=== PATIENT | male | born 1965 | race Caucasian/White ===

== ENCOUNTER → 2024-09-13 | Outpatient (CLI) | payer OTHER ==
[~2024-09-13] MED LIST: ALBU5SOL19 IH; BENZ-226 PO; BUPR-74 PO; DICL75TA5 PO; GABA-529 PO; HC2530O TP; LISI40TA9 PO; MONT-39 PO; SERT-440 PO
[2024-09-13 12:32] LABS: ALBUMIN 3.5 g/dL (3.5-5.0); BILIRUBIN,TOTAL 0.4 mg/dL (0.2-1.0); CREATININE 0.9 mg/dL (0.5-1.3); POTASSIUM 4.4 mmol/L (3.5-5.1); TOTAL PROTEIN, SERUM 6.9 g/dL (6.0-8.3)
== END | disposition home or self-care (01) ==
LOC: LAB 11:14
PROVIDERS: ATTEND Internal Medicine Cardiovascular Disease
DX: I25.118 Atherosclerotic heart disease of native coronary artery with other forms of angina pectoris (principal); E78.5 Hyperlipidemia, unspecified
CPT/HCPCS: 36415; 80053; 80061

== ENCOUNTER 2024-09-21 15:21 | Inpatient (IN) | payer OTHER ==
[~2024-09-21] VITALS: Ht 177.8 cm; Wt 149.9 kg
--- NOTE | 2024-09-21 15:30 | ERN ---
ED Note History of Present Illness Stated Complaint: CHEST PAIN Chief Complaint: Chest Pain Time Seen by MD: 15:23 Dictation: PATIENT IS A 58-YEAR-OLD MALE HERE WITH MULTIPLE COMPLAINTS TO INCLUDE DIZZINESS AND VERTIGO, WORSE WHEN HE TURNS HIS HEAD FOR THE LAST WEEK. ALSO STATES HE HAS HAD INTERMITTENT CHEST PAIN THAT DOES NOT RADIATE, NO NAUSEA VOMITING NO DIARRHEA NO ARM PAIN NO BACK PAIN. STATES HE RECENTLY HAD A CARDIAC STENT DONE AT [facility] LAST MONTH BY DR. GEE. STATES HE IS NOT HAVING ANY CHEST PAIN AT THIS TIME BUT JUST DOES NOT FEEL RIGHT AND WANTED TO BE CHECKED OUT. NIH IS 0 GAIT IS STEADY TO TRIAGE. Allergies: Coded Allergies: No Known Allergies (Unverified Allergy, Unknown, 08/22/24) Home Meds Reported Medications Albuterol Sulfate (Albuterol Sulfate) 5 Mg/Ml Solution, 7 MG IH Q6HPRN, ML 08/22/24 Hydrocortisone (Hydrocortisone 2.5% Oint) 2.5 % Oint, 1 APPL TP BID for 5 Days, #30 GM 0 Refills APPLY TO LEFT HAND NEAR LEFT PINKY, apply to affected area(s) 08/22/24 Sertraline HCl (Sertraline HCl) 100 Mg Tablet, 1 TAB PO DAILY for 30 Days, #30 TAB 0 Refills 08/22/24 Benzonatate (Benzonatate) 100 Mg Capsule, 100 MG PO TID, CAP 08/22/24 Bupropion HCl (Bupropion HCl Sr) 150 Mg Tablet.er, 1 TAB PO BID for 30 Days, #60 TAB 0 Refills 08/22/24 Diclofenac Sodium (Diclofenac Sodium) 75 Mg Tablet.dr, 1 MG PO BID 08/22/24 Gabapentin (Gabapentin) 100 Mg Capsule, 300 MG PO BID, CAP 08/22/24 Montelukast Sodium (Montelukast Sodium) 10 Mg Tablet, 1 TAB PO DAILY for 30 Days, #30 TAB 0 Refills 08/22/24 Lisinopril (Lisinopril) 40 Mg Tablet, 1 TAB PO DAILY for 30 Days, #30 TAB 0 Refills 08/22/24 Past Medical History Past Medical History: Anxiety, COPD, High Cholesterol, Hypertension, SC Surgical History: None Surgical History Other: CARDIAC STENTS X1 Family History: Negative Social History: Smokers, ETOH RN Note Reviewed/Agreed w/PFSH: Yes Review of System Dictation CONSTITUTIONAL: NEGATIVE EXCEPT FOR HPI HEAD/FACE: NEGATIVE EXCEPT FOR HPI EENT: NEGATIVE EXCEPT FOR HPI RESPIRATORY: NEGATIVE EXCEPT FOR HPI INTERMITTENT CHEST PAIN GASTROINTESTINAL/ABDOMINAL: NEGATIVE EXCEPT FOR HPI GENITOURINARY: NEGATIVE EXCEPT FOR HPI MUSCULOSKELETAL: NEGATIVE EXCEPT FOR HPI INTEGUMENTARY: NEGATIVE EXCEPT FOR HPI NEUROLOGICAL/PSYCH: NEGATIVE EXCEPT FOR HPI DIZZINESS/VERTIGO HEMATOLOGIC/LYMPHATIC: NEGATIVE EXCEPT FOR HPI ALL SYSTEMS NEGATIVE, EXCEPT NOTED ABOVE. 13 POINT REVIEW OF SYSTEMS ASSESSED AND ALL NEGATIVE EXCEPT FOR ABOVE. Initial Vital Sign VS Vital Signs Date Time Temp Pulse Resp B/P (MAP) Pulse Ox O2 Delivery O2 Flow Rate FiO2 09/21/24 15:23 99.5 85 20 115/76 98 Room Air 09/21/24 17:22 0 21 Physical Exam Dictation VITAL SIGNS REVIEWED GENERAL APPEARANCE: ALERT, ORIENTED X 3, NO ACUTE DISTRESS, WELL DEVELOPED, NOURISHED. HEAD AND FACE: NON-TRAUMATIC. EYES: PERRL, PINK CONJUNCTIVAS, EYELID NO TRAUMA, ANTERIOR CHAMBER WITH ARCUS SENILIS. BILATERAL HORIZONTAL NYSTAGMUS EARS: PINNAS INTACT AND NO SIGNS OF TRAUMA OR ERYTHEMA EAR CANALS CLEAR AND NO DISCHARGE TM NO ERYTHEMA NOSE: NO DISCHARGE, NO BLEEDING. OROPHARYNX: MOUTH NORMAL, TONGUE PINK, PHARYNX CLEAR,NO ERYTHEMA, TONSILS NO EXUDATES, NO ABSCESSES NOTED, MUCOUS MEMBRANE MOIST NECK: SUPPLE, NON-TENDER, NO THYROMEGALY, NO MASSES, NO JVD, NO BRUITS BREAST:DEFERRED CHEST:NO TENDERNESS, NO CREPITUS, NO PARADOXICAL MOVEMENT, NO RETRACTIONS LUNGS:CLEAR, WELL-VENTILATED, SYMMETRIC, NO RALES, NO WHEEZING, NO RHONCHI, NO STRIDOR, GOOD BREATH SOUNDS BILATERALLY HEART: REGULAR RATE, REGULAR RHYTHM, NO MURMUR, NO GALLOPS VASCULAR: NO PERIPHERAL EDEMA, ABDOMEN: SOFT, POSITIVE BOWEL SOUNDS, NONDISTENDED, NO GUARDING, NONTENDER, NO REBOUND, NO MASSES NO HEPATOMEGALY, NO SPLENOMEGALY, NO BUTLER'S SIGN, NO HERNIAS. RECTAL: DEFERRED GENITAL: DEFERRED NEUROLOGICAL: NORMAL SPEECH, MOTOR FUNCTION INTACT, SENSORY FUNCTION INTACT NIH IS 0 MUSCULOSKELETAL: NECK NONTENDER, FULL RANGE OF MOTION, BACK NONTENDER, FULL RANGE OF MOTION, EXTREMITIES: NONTENDER, FULL RANGE OF MOTION SKIN: COLOR PINK, DRY, NO TURGOR, NO RASH, NO LACERATIONS, NO ABRASIONS, NO CONTUSIONS. LYMPHATIC: DEFERRED Results (Laboratory/Radiology) Laboratory/Radiology Laboratory Tests Test 09/21/24 15:49 White Blood Count 11.0 K/uL (4.8-10.8) H Red Blood Count 4.40 MIL/uL (4.50-6.20) L Hemoglobin 13.6 g/dL (14.0-18.0) L Hematocrit 41.3 % (42-54) L Mean Corpuscular Volume 93.9 fL (79-99) Mean Corpuscular Hemoglobin 30.9 pg (27.0-33.0) Mean Corpuscular Hemoglobin Concent 32.9 g/dL (32.0-36.0) Red Cell Distribution Width 13.0 % (11.0-15.5) Platelet Count 203 K/uL (130-400) Mean Platelet Volume 9.2 fL (7.5-10.5) Immature Granulocyte % (Auto) 0.5 % (0-1) Neutrophils (%) (Auto) 68.2 % (40.0-77.0) Lymphocytes (%) (Auto) 17.9 % (21.0-51.0) L Monocytes (%) (Auto) 10.6 % (3.0-13.0) Eosinophils (%) (Auto) 2.5 % (0.0-8.0) Basophils (%) (Auto) 0.3 % (0.0-5.0) Neutrophils # (Auto) 7.5 K/uL (1.8-7.7) Lymphocytes # (Auto) 2.0 K/uL (1.0-4.8) Monocytes # (Auto) 1.2 K/uL (0.1-1.0) H Eosinophils # (Auto) 0.27 K/uL (0.00-0.70) Basophils # (Auto) 0.03 K/uL (0.00-0.20) Absolute Immature Granulocyte (auto 0.05 K/uL (0-1) Nucleated Red Blood Cells 0.0 % (0.0-0.19) Sodium Level 136 mmol/L (136-145) Potassium Level 3.9 mmol/L (3.5-5.1) Chloride Level 101 mmol/L (101-111) Carbon Dioxide Level 28 mmol/L (21-32) Blood Urea Nitrogen 15 mg/dL (7-18) Creatinine 1.0 mg/dL (0.5-1.3) Glomerular Filtration Rate Calc 87 mL/min (>90) Random Glucose 119 mg/dL (70-105) H Total Calcium 9.8 mg/dL (8.5-10.1) Troponin I High Sensitivity 8 ng/L (4-75) xam Type: CHEST 1VW Clinical Information: SHORTNESS A BREATH/CHEST PAIN Comparison: None Findings: Old healed with deformity right midclavicular fracture. The lungs are clear of infiltrates. The heart is enlarged. Bony and soft tissue structures of the chest wall are unremarkable. IMPRESSION: Cardiomegaly. Clear lungs. Labs Reviewed?: Yes EKG Comment: EKG IS SINUS RHYTHM/HEART RATE 81/AR INTERVAL 202 MILLISECOND /NO SPECIFIC CHANGES ED Course ED Course Orders Procedure Category Date Status Time Methylprednisolone PHA 09/21/24 Complete Succ 125mg (Solu-Medr 15:30 Meclizine Hcl 25 Mg PHA 09/21/24 Complete (Antivert 25 Mg) 15:30 Covid19 (Sars Antigen LAB 09/21/24 Logged Rapid) 15:27 Cbc With Differential LAB 09/21/24 Complete 15:27 Troponin I High LAB 09/21/24 Complete Sensitivity 15:27 12 Lead Ekg Tracing- EKG 09/21/24 Logged Technical 15:27 0.9%Nacl 1000ml (Ns PHA 09/21/24 Complete 1000ml) 15:30 Chest 1vw RAD 09/21/24 Resulted 15:27 Basic Metabolic Panel LAB 09/21/24 Complete 15:27 Albuterol 0.083% PHA 09/21/24 Complete 2.5mg/3ml (Proventil 17:30 Edm Admit Bridge Order ADM 09/21/24 Transmitted 17:19 Vital Signs(Adult CPOE 09/21/24 Transmitted Hospitalist) 17:58 Nurse To Enter Home CPOE 09/21/24 Transmitted Medication 17:58 Admit Orders ADM 09/21/24 Transmitted 17:58 Telemetry Monitoring CPOE 09/21/24 Transmitted 17:58 Heart Healthy Diet DIET 09/22/24 Transmitted Breakfast Morphine 2mg Syg PHA 09/21/24 Transmitted (Morphine 2mg Syg) 18:00 Pantoprazole 40mg Inj PHA 09/21/24 Transmitted (Protonix 40mg Inj 19:00 *Nursing CPOE 09/21/24 Transmitted Communication: 17:58 Troponin I High LAB 09/21/24 Transmitted Sensitivity 18:00 Troponin I High LAB 09/22/24 Verified Sensitivity 00:00 Echo 2-D Complete ECHO 09/21/24 Transmitted 17:58 Psychiatry Consult CONPHYSVC 09/21/24 Transmitted 17:58 Aspirin 81mg Chew Tab PHA 09/22/24 Transmitted (Aspirin 81mg Chew 09:00 Clopidogrel 75mg Tab PHA 09/22/24 Transmitted (Plavix 75mg) 09:00 Thyroid Stimulating LAB 09/21/24 Transmitted Hormone 17:58 Hemoglobin A1c LAB 09/21/24 Transmitted 17:58 Procalcitonin LAB 09/21/24 Transmitted 17:58 Crp Quantitative LAB 09/21/24 Transmitted 17:58 Urinalysis Profile LAB 09/21/24 Transmitted 17:58 Lipase LAB 09/21/24 Transmitted 17:58 Ct Abdomen/Pelvis W/O CT 09/21/24 Transmitted Contrast 17:58 Ct Head/Brain W/O CT 09/21/24 Transmitted Contrast 17:58 Acetaminophen 500mg PHA 09/21/24 Transmitted Tab (Tylenol 500mg T 18:00 0.9%Nacl 1000ml (Ns PHA 09/21/24 Transmitted 1000ml) 18:00 Cardiology Consult CONPHYSVC 09/21/24 Transmitted 17:58 Pt Eval And Treat PT 09/21/24 Transmitted 17:58 Ipratropium/Albuterol PHA 09/21/24 Transmitted Neb (Duoneb) 21:00 Current Medications Medications (Trade) Dose Ordered Sig/Iris Route PRN Reason Start Time Stop Time Status Last Admin Dose Admin Albuterol Sulfate (Proventil 0.083% 2.5mg/3ml) 2.5 mg ONCE ONCE IH 09/21/24 17:30 09/21/24 17:31 DC 09/21/24 17:33 Meclizine HCl (ANTIvert 25 mg) 50 mg ONCE ONCE PO 09/21/24 15:30 09/21/24 15:31 DC 09/21/24 17:18 Methylprednisolone Sodium Succinate (Solu-medROL 125MG) 125 mg ONCE ONCE IVP 09/21/24 15:30 09/21/24 15:31 DC 09/21/24 17:18 Sodium Chloride 1,000 ml @ 0 mls/hr ONCE ONCE IV 09/21/24 15:30 09/21/24 15:31 DC 09/21/24 17:19 Vital Signs Date Time Temp Pulse Resp B/P (MAP) Pulse Ox O2 Delivery O2 Flow Rate FiO2 09/21/24 17:33 74 18 09/21/24 17:22 72 18 122/68 98 Room Air* 0 21 09/21/24 15:23 99.5 85 20 115/76 98 Room Air 1712/DR KRUSE PRESENTED THE CASE TO , REVIEWED EKG LABS AND CHEST X- RAY PATIENT WAS ADMITTED. HEART Score Response (Comments) Value EKG: Repolarization changes 1 Age: > 65yrs (+2) 2 Risk Factors: 3+ risk factors (+2) 2 Initial Troponin: Normal limit (0) 0 Total 5 Medical Decision Making MDM MDM: DIFFERENTIAL DIAGNOSIS: ACS/AMI/ELECTROLYTE IMBALANCE/DEHYDRATION/PNEUMONIA/ RATIONALE: TESTS CONSIDERED AND ORDERED SECONDARY TO SHARED DECISION MAKING INCLUDE: LABS, ECG AND RADIOLOGY PREVIOUS OUTSIDE RECORDS REVIEWED: OLD ER VISITS. BRONCHITIS/VERTIGO. REVIEWED RISK OF COMPLICATION AND/OR MORBIDITY OR MORTALITY OF PATIENT MANAGEMENT: MODERATE MEDICATIONS-PER MEDICATION RECONCILIATION NEED FOR HOSPITALIZATION: PATIENT DOES MEET CRITERIA FOR HOSPITALIZATION. PATIENT WILL NEED SERIAL EKG AND ENZYMES. NEED FOR EMERGENCY MAJOR/MINOR SURGERY: NO THERE ARE NO SOCIAL CONCERNS WITH THIS PATIENT. PRESCRIPTION DRUG MANAGEMENT PRESCRIPTIONS WILL INCLUDE SYMPTOMATIC CARE PATIENT'S PRIOR EXTERNAL MEDICAL RECORDS FROM OTHER ER VISITS WERE REVIEWED BY ME INDICATED. PRIOR TESTING AND RESULTS FROM PREVIOUS VISITS WERE REVIEWED. PRIOR TESTS WERE TAKEN INTO ACCOUNT WITH MEDICAL DECISION MAKING AND RESOURCE UTILIZATION, INDEPENDENT HISTORIAN/HISTORIANS WERE USED TO OBTAIN COMPLETE MEDICAL HISTORY. I INDEPENDENTLY INTERPRETED THE TEST THAT WERE PERFORMED, RESULTS WERE REVIEWED BY ME AND CONSIDERED FINDINGS ON RADIOLOGY IF ORDERED. MEDICAL MANAGEMENT AND EXAMINATION INTERPRETATION DISCUSSIONS WERE HAD BY ME WITH OTHER QUALIFIED HEALTHCARE PROFESSIONALS INDICATED FOR THE PATIENT'S CARE. DX & DISP Disposition: Inpatient Decision to Admit Time: 17:17 Departure Impression: Primary Impression: Chest pain with high risk of acute coronary syndrome Additional Impressions: Viral URI with cough, Dizziness Condition: Stable Referrals: GEOVANY VELARDE (PCP) Time of Disposition: 17:17 I have reviewed the case, and I agree with, Diagnosis and Plan I performed a substantive portion of the visit. I have reviewed and personally made and approve the management plan that is documented in the notes by myself with JULIEN/resident. I acknowledged full responsibility for the patient's manage ment plan. MAHIN JEFFERS NP Sep 21, 2024 15:30 CAROLYN KRUSE DO Sep 21, 2024 18:07
--- NOTE | 2024-09-21 15:48 | HMCIMG ---
Exam Type: CHEST 1VW Clinical Information: SHORTNESS A BREATH/CHEST PAIN Comparison: None Findings: Old healed with deformity right midclavicular fracture. The lungs are clear of infiltrates. The heart is enlarged. Bony and soft tissue structures of the chest wall are unremarkable. IMPRESSION: Cardiomegaly. Clear lungs.
[2024-09-21 15:56] LABS: BASOPHILS # (AUTO) 0.03 K/uL (0.00-0.20); BASOPHILS % (AUTO) 0.3 % (0.0-5.0); EOSINOPHILS # (AUTO) 0.27 K/uL (0.00-0.70); EOSINOPHILS % (AUTO) 2.5 % (0.0-8.0); HEMATOCRIT 41.3 % (42-54); IMMATURE GRANULOCYTE ABSOLUTE 0.05 K/uL (0-1); LYMPHOCYTES % (AUTO) 17.9 % (21.0-51.0); MEAN CORPUSCULAR HEMOGLOBIN 30.9 pg (27.0-33.0); MEAN CORPUSCULAR HGB CONC 32.9 g/dL (32.0-36.0); MEAN CORPUSCULAR VOLUME 93.9 fL (79-99); MONOCYTES # (AUTO) 1.2 K/uL (0.1-1.0); MONOCYTES % (AUTO) 10.6 % (3.0-13.0); NEUTROPHILS # (AUTO) 7.5 K/uL (1.8-7.7); NEUTROPHILS % (AUTO) 68.2 % (40.0-77.0); PLATELET COUNT (AUTO) 203 K/uL (130-400)
[2024-09-21 16:21] LABS: POTASSIUM 3.9 mmol/L (3.5-5.1)
[2024-09-21] MEDS: mecliZINE HCL 25 MG TABLET PO ONE (17:18)
[2024-09-21] MEDS: Solu-medROL 125MG VIAL IVP ONE (17:18)
[2024-09-21] MEDS: 0.9%NACL 1000ML 1,000 ML IV ONE ×2 (17:19→18:18)
[2024-09-21 17:33] VITALS: PULSE 74; RESP 18
[2024-09-21] MEDS: ALBUTEROL 0.083% 2.5 MG/3 ML INH IH ONE (17:33)
[2024-09-21] MEDS ORDERED: morPHINE 2 MG SYG IVP PRN (18:00)
--- NOTE | 2024-09-21 18:38 | HP ---
[facility] HISTORY AND PHYSICAL Date of Service: Sep 21, 2024 Time of Service: 18:37 HISTORY OF PRESENT ILLNESS: Date of service: 09/21/2024 58-year-old male with past medical history of hypertension, history of CAD with recent inferior LA status post stent placement, history of depression who presented to the hospital secondary to generalized fatigue, chest pain. Patient states for the past one week he has noted on and off episodes of chest pain. He points towards his midsternal/epigastric area and describes the pain as sharp in nature. He has noted pain radiating to his right shoulder and jaw. He has also noticed generalized fatigue with associated paresthesias in the lower extremities. He has been able to ambulate at home but denies any falls, syncopal episode. Denied any headaches, neck pain. Additionally he states he is having issues with memory where his has noted that patient has word- finding difficulties at home. Patient denied any changes in his speech, denied any abdominal pain, nausea, vomiting. Denied any changes in his urination but states he has noted episodes of diarrhea at home. Patient quit smoking around a month ago after he had STEMI and currently is on bupropion. He denies any suicidal thoughts or homicidal ideation. He feels depressed and endorses having mood swings at home. He currently takes Zoloft at home which he has been taking for few few years. He has not seen a psychiatrist before. He has been a mainly following with his primary care provider. Denied any problems with movement of the upper and lower extremity. He had followed up with Cardiology and was scheduled for intervention for his residual mid LAD disease in next week. Labs in the ED were notable for white count of 11.0, hemoglobin was 13.6, platelet count was 203 K, sodium was 136, potassium was 3.9, creatinine was 1.0, glucose was one one, troponin was negative x1 REVIEW OF SYSTEMS CONSTITUTIONAL: Denies fevers, chills, or night sweats. No unintentional weight loss reported. Positive for generalized fatigue NEUROLOGICAL: Denies headache, amaurosis fugax, motor weakness, sensory deficit, vertigo/spinning sensation, gait abnormalities, or tremors. Positive for paresthesias in the bilateral lower extremity ENT: No hearing loss, otalgia, otorrhea, rhinitis, rhinorrhea, hoarseness, or sore throat. CARDIOVASCULAR: Denies any exertional angina, dyspnea on exertion, orthopnea, paroxysmal nocturnal dyspnea, palpitations, life-threatening arrhythmias, claudication. Positive for chest pain PULMONARY: Positive for cough, sputum production. Denied any hemoptysis GASTROINTESTINAL: Denies any type of dysphagia to either liquids or solids. Denies nausea, vomiting, pyrosis, early satiety, abdominal pain, constipation, or changes in stool consistency or caliber. Denies coffee-ground emesis, hematemesis, hematochezia, or melanotic stools. Positive for diarrhea GENITOURINARY: Denies frequency, urgency, nocturia, hematuria or incontinence (Storage/Irritative symptoms.) Low urinary stream, straining to void, urinary intermittency or hesitancy, splitting of the voiding stream, terminal dribbling. ENDOCRINOLOGIC: Denies polyuria, polydipsia, polyphagia or heat/cold intolerances. HEMATOLOGIC: Denies thrombophilia/previous clots, or coagulopathy/bleeding disorders. ONCOLOGIC: Denies personal history of malignancy. DERMATOLOGIC: Denies rashes or pruritus. PSYCHIATRIC: Denies any suicidal or homicidal ideation. Denies hallucinations. PAST MEDICAL HISTORY: Hypertension, history of inferior LA September 02, 2024, hypertension, hyperlipidemia PAST SURGICAL HISTORY: History of cardiac stent placement in September 02, 2019 PAST SOCIAL HISTORY: Patient quit smoking in 2024, denied any alcohol use. Denied any drug use FAMILY HISTORY: Denied any pertinent family history Coded Allergies: No Known Allergies (Unverified Allergy, Unknown, 08/22/24) PHYSICAL EXAM GENERAL APPEARANCE: The patient is awake, alert, and oriented, in no acute cardiopulmonary distress. NEUROLOGICAL: Cranial nerves II-XII grossly intact. Motor is 5/5 in bilateral upper and lower extremities proximal to distal. No sensory deficits. HEENT: Face is symmetric. Pupils are equal and reactive. Extraocular movements are intact. NECK: Supple. No JVD. No thyromegaly. No submental, submandibular, pre- /postauricular, occipital or supraclavicular lymphadenopathy. CHEST: Normal chest expansion. No Telemetry. LUNGS: Absence of any rales, rhonchi or any wheezing. CARDIOVASCULAR: Regular. S1 and S2 normal. No appreciable rubs, murmurs or gallops. ABDOMEN: Soft, tenderness to palpation in the epigastric area, and nondistended. There is no rebound, voluntary guarding, or rigidity. : Deferred. No Estrada. EXTREMITIES: Non-edematous and not cyanotic. No clubbing. Good capillary refill. SKIN: No skin breakdown. Vital Sign (Last 24 Hours) 09/21/24 18:30 Temp 99.0 Pulse 71 Resp 18 B/P (MAP) 128/72 Pulse Ox 98 O2 Delivery Room Air* O2 Flow Rate 0 FiO2 21 LABS: Laboratory: Test 09/21/24 15:49 Range/Units White Blood Count 11.0 H 4.8-10.8 K/uL Red Blood Count 4.40 L 4.50-6.20 MIL/uL Hemoglobin 13.6 L 14.0-18.0 g/dL Hematocrit 41.3 L 42-54 % Mean Corpuscular Volume 93.9 79-99 fL Mean Corpuscular Hemoglobin 30.9 27.0-33.0 pg Mean Corpuscular Hemoglobin Concent 32.9 32.0-36.0 g/dL Red Cell Distribution Width 13.0 11.0-15.5 % Platelet Count 203 130-400 K/uL Mean Platelet Volume 9.2 7.5-10.5 fL Immature Granulocyte % (Auto) 0.5 0-1 % Neutrophils (%) (Auto) 68.2 40.0-77.0 % Lymphocytes (%) (Auto) 17.9 L 21.0-51.0 % Monocytes (%) (Auto) 10.6 3.0-13.0 % Eosinophils (%) (Auto) 2.5 0.0-8.0 % Basophils (%) (Auto) 0.3 0.0-5.0 % Neutrophils # (Auto) 7.5 1.8-7.7 K/uL Lymphocytes # (Auto) 2.0 1.0-4.8 K/uL Monocytes # (Auto) 1.2 H 0.1-1.0 K/uL Eosinophils # (Auto) 0.27 0.00-0.70 K/uL Basophils # (Auto) 0.03 0.00-0.20 K/uL Absolute Immature Granulocyte (auto 0.05 0-1 K/uL Nucleated Red Blood Cells 0.0 0.0-0.19 % Sodium Level 136 136-145 mmol/L Potassium Level 3.9 3.5-5.1 mmol/L Chloride Level 101 101-111 mmol/L Carbon Dioxide Level 28 21-32 mmol/L Blood Urea Nitrogen 15 7-18 mg/dL Creatinine 1.0 0.5-1.3 mg/dL Glomerular Filtration Rate Calc 87 >90 mL/min Random Glucose 119 H 70-105 mg/dL Total Calcium 9.8 8.5-10.1 mg/dL Troponin I High Sensitivity 8 4-75 ng/L Current Medications Medications (Trade) Dose Ordered Sig/Iris Route PRN Reason Start Time Stop Time Status Last Admin Dose Admin Acetaminophen (TYLenol 500MG TAB) 500 mg Q6H PRN PO MILD PAIN (1-3) 09/21/24 18:00 10/21/24 17:59 Albuterol (DUOneb) 1 UDVIAL Q6H PRN IH SHORTNESS OF BREATH 09/21/24 21:00 10/21/24 20:59 Aspirin (Aspirin 81mg Chew Tab) 81 mg DAILY PO 09/22/24 09:00 10/22/24 08:59 Clopidogrel Bisulfate (plaVIX 75MG) 75 mg DAILY PO 09/22/24 09:00 10/22/24 08:59 Hydralazine HCl (APRESOLine 20MG INJ) 10 mg Q6H PRN IV ADMINISTER FOR SBP > 180 09/21/24 19:00 10/21/24 18:59 UNV Lisinopril (Prinivil 20mg) 20 mg DAILY PO 09/22/24 09:00 10/22/24 08:59 Morphine Sulfate (morPHINE 2MG SYG) 2 mg Q6H PRN IVP SEVERE PAIN (7-10) 09/21/24 18:00 09/28/24 17:59 Pantoprazole Sodium (PROTonix 40MG INJ) 40 mg DAILY IVP 09/21/24 19:00 10/21/24 18:59 DIAGNOSTICS / RADIOLOGY: [ ] ASSESSMENT: Chest pain ACS rule POA CAD with history of recent inferior LA status post angioplasty and stent placement in the left posterior lateral branch with residual stenosis involving the mid LAD 75% Hypertension Hyperlipidemia Generalized fatigue with bilateral paresthesias the lower extremity Former smoker Depression Abdominal pain with epigastric tenderness differential pancreatitis versus PUD PLAN: - patient to be admitted to medical-surgical unit with telemetry -in reference to chest pain. We will trend troponins q.6 hours to rule out ACS. We will also obtain echocardiogram. Patient will be restarted on aspirin and Plavix. Secondary to recent LA and residual mid LAD stenosis. We will request consultation with Cardiology -obtain a CT head. We will consider MRI brain depending on clinical course. - in reference to abdominal pain. Obtain a CT abdomen pelvis. We will check lipase -check TSH, A1c procaine, CRP -we will request consultation with Psychiatry. Patient denies any suicidal thoughts or homicidal ideation -obtain home medications which will be reconciled once available -further orders per hospitalization Advanced Care Planning Which of the following were discussed: Hospice care: Yes __ No _x_ Therapeutic options: Yes __ No __ Advance directives: Yes __ No __ Other discussions: Pt is full code Discussed with who?: patient (Patient, family or surrogates) Voluntary nature of this service was explained to the patient? Yes _x_ No __ Amount of time spent: 25 minutes KHRIS Watson MD, MD Sep 21, 2024 18:38
[2024-09-21] MEDS ORDERED: hydrALAZine 20MG/ML VIAL IV PRN (19:00)
[2024-09-21 19:06] LABS: APPEARANCE,URINE CLEAR (CLEAR); BILIRUBIN,URINE NEGATIVE (NEGATIVE); COLOR,URINE COLORLESS (YELLOW); GLUCOSE, URINE (UA) NEGATIVE (NEGATIVE); KETONES,URINE NEGATIVE (NEGATIVE); LEUKOCYTE ESTERASE ,URINE NEGATIVE Leu/uL (NEGATIVE); NITRATE,URINE NEGATIVE (NEGATIVE); OCCULT BLOOD,URINE NEGATIVE (NEGATIVE); PH,URINE 5.5 (5.0-8.0); PROTEIN,URINE NEGATIVE (NEGATIVE); UROBILINOGEN,URINE 0.2 mg/dL (0.2-1.0)
[2024-09-21] MEDS: PANTOPrazole 40 MG/VIAL IVP SCH (19:09)
--- NOTE | 2024-09-21 19:10 | HMCIMG ---
CT HEAD WITHOUT CONTRAST INDICATION: Generalized weakness TECHNIQUE: Noncontrast axial helical CT images from the vertex through the skull base using 5 mm slice thickness without contrast material. CT was performed with one or more of the following dose reduction techniques: Automated exposure control, adjustment of the mA and/or kV according to patient size, or use of iterative reconstruction technique. COMPARISON: None FINDINGS: The cerebral and cerebellar hemispheres are age-appropriate in appearance. No evidence for abnormal extra-axial fluid collections or masses. The ventricles and sulci are normal in size and configuration. No evidence for intracranial parenchymal, epidural, or subdural hemorrhage, mass effect or midline shift. The acosta-white matter differentiation is well preserved. No secondary evidence to suggest acute ischemia. The brainstem and cerebellum appear normal. The visualized orbits appear unremarkable. The visible paranasal sinuses and mastoid air cells are clear. The calvarium appears normal. IMPRESSION: No acute intracranial process identified.
[2024-09-21 19:11] LABS: ADD UA MICROSCOPIC NO
[2024-09-21 19:16] LABS: THYROID STIMULATING HORMONE 1.62 uIU/mL (0.36-3.74)
--- NOTE | 2024-09-21 19:17 | HMCIMG ---
CT ABDOMEN WITHOUT CONTRAST. CT PELVIS WITHOUT CONTRAST. INDICATION: Left upper abdominal and epigastric abdominal pain TECHNIQUE: Routine transaxial imaging using 5 mm slice thickness through the abdomen and pelvis without the administration of IV contrast. Thin slice reconstructions are also provided. Coronal and sagittal reformatted images acquired for interpretation. CT was performed with one or more of the following dose reduction techniques: Automated exposure control, adjustment of the mA and/or kV according to patient size, or use of iterative reconstruction technique. COMPARISON: None FINDINGS: ON NONCONTRAST IMAGING: ABDOMEN: Heart size is normal. Visible lung bases are clear. No abnormal renal calcifications, hydronephrosis, perinephric inflammation, or proximal hydroureter detected. The liver is normal in size and smooth in contour without biliary duct dilation. The spleen is normal in size and attenuation. The gallbladder appears normal. The pancreas appears normal without pancreatic duct dilation. The adrenal glands appear normal. No significant abdominal, retrocrural or retroperitoneal adenopathy noted. No evidence for intra-abdominal free air or organized fluid collection. Mild calcific plaque is noted along the abdominal aortic and iliac vessel ingram without aneurysmal dilation. PELVIS: No abnormal calcifications within the urinary bladder or distal ureters. No evidence for free air or organized pelvic fluid collection. No significant pelvic adenopathy detected. Visualized small and large bowel loops appear unremarkable. Terminal ileum appears unremarkable. The appendix appears normal. Mild thoracolumbar spondylosis. Chronic bilateral L5 spondylolysis contributing to low-grade (4 mm) anterolisthesis of L5 upon S1. IMPRESSION: No evidence for any acute intra-abdominal or pelvic process.
[2024-09-21] MEDS ORDERED: PoTASSium chl 10% ELIXIR 20MEQ 20 MEQ/15 ML UDCUP PO PRN (19:30)
[2024-09-21] MEDS ORDERED: MAGNESIUM 2GM PREMIX 50ML 50 ML IV PRN (19:30)
[2024-09-21] MEDS ORDERED: PoTASSium chloRIDE 20MEQ ER 20 MEQ ERTAB PO PRN (19:30)
[2024-09-21] MEDS ORDERED: PoTASSium chloRIDE 20MEQ/100ML 100 ML IV PRN (19:30)
--- NOTE | 2024-09-21 21:44 | NUR ---
NEURO CONSULT FOR DR WEAVER DONE BY DR WEIR
[2024-09-21] MEDS ORDERED: ATOR40TA71 PO (21:57)
[2024-09-21] MEDS ORDERED: ASPI-1005 PO (21:58)
[2024-09-21] MEDS ORDERED: ISOS30TA92 PO (21:58)
[2024-09-21] MEDS ORDERED: LISI20TA24 PO (21:58)
[2024-09-21] MEDS ORDERED: CLOP75TA32 PO (21:59)
[2024-09-21] MEDS ORDERED: METO50TA18 PO (22:00)
[2024-09-22 00:08] VITALS: PULSE 77; RESP 18; O2SAT 97
[2024-09-22] MEDS: IpraTROPium/alBUTERol SULFATE 3 ML SOLUTION IH PRN (00:08)
--- NOTE | 2024-09-22 06:35 | EKG ---
[facility] Test Date: 2024-09-21 Test Time: 15:20:44 Pat Name: KRISTINA WISEMAN Department: EDHIP Room: ED [facility] Gender: M Technical Artist: [id number] : [id number] Requested By: MAHIN JEFFERS Order Number: [id number] Reading MD: Kristie Myers Measurements Intervals [place] Rate: 81 P: 72 CO: 202 QRS: -26 QRSD: 96 T: -27 QT: 364 QTc: 423 Interpretive Statements Sinus rhythm with first degree AV block Compared to ECG 08/23/2024 06:18:31 ST (T wave) deviation no longer present Prolonged QT interval no longer present Electronically Signed On 09-22-2024 10:21:24 CDT by Kristie Myers Please click the below link to view image of tracing.
[2024-09-22 07:20] VITALS: PULSE 82; RESP 18; O2SAT 97
[2024-09-22 07:21] VITALS: PULSE 82; RESP 18
[2024-09-22 07:29] LABS: BASOPHILS # (AUTO) 0.01 K/uL (0.00-0.20); BASOPHILS % (AUTO) 0.1 % (0.0-5.0); IMMATURE GRANULOCYTE ABSOLUTE 0.06 K/uL (0-1); LYMPHOCYTES # (AUTO) 1.3 K/uL (1.0-4.8); LYMPHOCYTES % (AUTO) 15.7 % (21.0-51.0); MEAN CORPUSCULAR HEMOGLOBIN 30.9 pg (27.0-33.0); MEAN CORPUSCULAR HGB CONC 33.5 g/dL (32.0-36.0); MEAN CORPUSCULAR VOLUME 92.4 fL (79-99); MONOCYTES # (AUTO) 0.2 K/uL (0.1-1.0); MONOCYTES % (AUTO) 2.2 % (3.0-13.0); NEUTROPHILS # (AUTO) 6.9 K/uL (1.8-7.7); NEUTROPHILS % (AUTO) 81.3 % (40.0-77.0); PLATELET COUNT (AUTO) 204 K/uL (130-400); RED BLOOD CELL COUNT(AUTO) 4.33 MIL/uL (4.50-6.20); RED CELL DISTRIBUTION WIDTH 13.2 % (11.0-15.5); WHITE BLOOD COUNT (AUTO) 8.5 K/uL (4.8-10.8)
[2024-09-22 07:34] LABS: CREATININE 0.8 mg/dL (0.5-1.3); POTASSIUM 4.2 mmol/L (3.5-5.1)
--- NOTE | 2024-09-22 08:09 | PN ---
[facility] PROGRESS NOTE Date of Service: Sep 22, 2024 Time of Service: 08:09 SUBJECTIVE: [ ] 58-year-old male with a past medical history of essential hypertension, CAD with recent inferior W[place] post stent placement, hyperlipidemia and depression was admitted to the medical telemetry unit with diagnosis of chest pain to rule out ACS. Cardiology, neurology and Psychiatry consulted. 09/22/2024 today at bedside evaluation patient is alert and oriented x3. Patient's latest vital signs are stable, afebrile, satting 99% on room air. Leukocytosis resolved, there is bandemia. BMP is stable. Head CT and MRI of brain showed no acute findings. CT abdomen/pelvis is negative. Continue aspirin, Plavix, Imdur, metoprolol succinate. We will follow up with cardiology's recommendations. REVIEW OF SYSTEMS CONSTITUTIONAL: Denies fevers, chills, or night sweats. No unintentional weight loss reported. Positive for generalized fatigue NEUROLOGICAL: Denies headache, amaurosis fugax, motor weakness, sensory deficit, vertigo/spinning sensation, gait abnormalities, or tremors. Positive for paresthesias in the bilateral lower extremity ENT: No hearing loss, otalgia, otorrhea, rhinitis, rhinorrhea, hoarseness, or sore throat. CARDIOVASCULAR: Denies any exertional angina, dyspnea on exertion, orthopnea, paroxysmal nocturnal dyspnea, palpitations, life-threatening arrhythmias, claudication. Positive for chest pain PULMONARY: Positive for cough, sputum production. Denied any hemoptysis GASTROINTESTINAL: Denies any type of dysphagia to either liquids or solids. Denies nausea, vomiting, pyrosis, early satiety, abdominal pain, constipation, or changes in stool consistency or caliber. Denies coffee-ground emesis, hematemesis, hematochezia, or melanotic stools. Positive for diarrhea GENITOURINARY: Denies frequency, urgency, nocturia, hematuria or incontinence (Storage/Irritative symptoms.) Low urinary stream, straining to void, urinary intermittency or hesitancy, splitting of the voiding stream, terminal dribbling. ENDOCRINOLOGIC: Denies polyuria, polydipsia, polyphagia or heat/cold intolerances. HEMATOLOGIC: Denies thrombophilia/previous clots, or coagulopathy/bleeding disorders. ONCOLOGIC: Denies personal history of malignancy. DERMATOLOGIC: Denies rashes or pruritus. PSYCHIATRIC: Denies any suicidal or homicidal ideation. Denies hallucinations. PHYSICAL EXAM GENERAL APPEARANCE: The patient is awake, alert, and oriented, in no acute cardiopulmonary distress. NEUROLOGICAL: Cranial nerves II-XII grossly intact. Motor is 5/5 in bilateral upper and lower extremities proximal to distal. No sensory deficits. HEENT: Face is symmetric. Pupils are equal and reactive. Extraocular movements are intact. NECK: Supple. No JVD. No thyromegaly. No submental, submandibular, pre- /postauricular, occipital or supraclavicular lymphadenopathy. CHEST: Normal chest expansion. No Telemetry. LUNGS: Absence of any rales, rhonchi or any wheezing. CARDIOVASCULAR: Regular. S1 and S2 normal. No appreciable rubs, murmurs or gallops. ABDOMEN: Soft, tenderness to palpation in the epigastric area, and nondistended. There is no rebound, voluntary guarding, or rigidity. : Deferred. No Estrada. EXTREMITIES: Non-edematous and not cyanotic. No clubbing. Good capillary refill. SKIN: No skin breakdown. Vital Signs (last 8hr) Date Time Temp Pulse Resp B/P (MAP) Pulse Ox O2 Delivery O2 Flow Rate FiO2 09/22/24 07:21 82 18 09/22/24 07:20 82 18 N/A Room Air 21 09/22/24 06:10 98.4 86 16 122/76 95 Room Air* 0 21 09/22/24 01:41 98.6 89 16 119/57 92 Room Air* 0 21 LABS: Laboratory: Test 09/22/24 07:00 09/22/24 00:22 09/21/24 18:41 09/21/24 18:25 Range/Units White Blood Count 8.5 4.8-10.8 K/uL Red Blood Count 4.33 L 4.50-6.20 MIL/uL Hemoglobin 13.4 L 14.0-18.0 g/dL Hematocrit 40.0 L 42-54 % Mean Corpuscular Volume 92.4 79-99 fL Mean Corpuscular Hemoglobin 30.9 27.0-33.0 pg Mean Corpuscular Hemoglobin Concent 33.5 32.0-36.0 g/dL Red Cell Distribution Width 13.2 11.0-15.5 % Platelet Count 204 130-400 K/uL Mean Platelet Volume 9.7 7.5-10.5 fL Immature Granulocyte % (Auto) 0.7 0-1 % Neutrophils (%) (Auto) 81.3 H 40.0-77.0 % Lymphocytes (%) (Auto) 15.7 L 21.0-51.0 % Monocytes (%) (Auto) 2.2 L 3.0-13.0 % Eosinophils (%) (Auto) 0.0 0.0-8.0 % Basophils (%) (Auto) 0.1 0.0-5.0 % Neutrophils # (Auto) 6.9 1.8-7.7 K/uL Lymphocytes # (Auto) 1.3 1.0-4.8 K/uL Monocytes # (Auto) 0.2 0.1-1.0 K/uL Eosinophils # (Auto) 0.00 0.00-0.70 K/uL Basophils # (Auto) 0.01 0.00-0.20 K/uL Absolute Immature Granulocyte (auto 0.06 0-1 K/uL Nucleated Red Blood Cells 0.0 0.0-0.19 % Sodium Level 140 136-145 mmol/L Potassium Level 4.2 3.5-5.1 mmol/L Chloride Level 107 101-111 mmol/L Carbon Dioxide Level 25 21-32 mmol/L Blood Urea Nitrogen 15 7-18 mg/dL Creatinine 0.8 0.5-1.3 mg/dL Glomerular Filtration Rate Calc 102 >90 mL/min Random Glucose 165 H 70-105 mg/dL Total Calcium 9.5 8.5-10.1 mg/dL Troponin I High Sensitivity 6 4-75 ng/L Hemoglobin A1c 6.0 4.0-6.0 % Estimated Average Glucose (eAG) 126 70-126 mg/dL C-Reactive Protein, Quantitative 11.90 H 0.5-3.0 mg/L Lipase 26 16-77 U/L Procalcitonin < 0.05 L 0.05-0.5 ng/mL Thyroid Stimulating Hormone (TSH) 1.62 0.36-3.74 uIU/mL Urine Color COLORLESS YELLOW Urine Appearance CLEAR CLEAR Urine pH 5.5 5.0-8.0 Urine Specific [place] 1.002 1.001-1.031 Urine Protein NEGATIVE NEGATIVE mg/dL Urine Glucose (UA) NEGATIVE NEGATIVE mg/dL Urine Ketones NEGATIVE NEGATIVE mg/dL Urine Occult Blood NEGATIVE NEGATIVE Urine Nitrate NEGATIVE NEGATIVE Urine Bilirubin NEGATIVE NEGATIVE mg/dL Urine Urobilinogen 0.2 0.2-1.0 mg/dL Urine Leukocyte Esterase NEGATIVE NEGATIVE Tito/uL Test 09/21/24 18:08 Range/Units SARS-CoV-2 Antigen (Rapid) PRESUMPTIVE NEGATIVE NEGATIVE Current Medications Medications (Trade) Dose Ordered Sig/Iris Route PRN Reason Start Time Stop Time Status Last Admin Dose Admin Acetaminophen (TYLenol 500MG TAB) 500 mg Q6H PRN PO MILD PAIN (1-3) 09/21/24 18:00 10/21/24 17:59 Albuterol (DUOneb) 1 UDVIAL Q6H PRN IH SHORTNESS OF BREATH 09/21/24 21:00 10/21/24 20:59 09/22/24 07:20 1 UDVIAL Aspirin (Aspirin 81mg Chew Tab) 81 mg DAILY PO 09/22/24 09:00 10/22/24 08:59 Atorvastatin Calcium (LIPItor 40MG) 40 mg HS PO 09/22/24 21:00 10/22/24 20:59 Bupropion HCl (WellBUTrin SR 150MG) 150 mg BID PO 09/22/24 09:00 10/22/24 08:59 Clopidogrel Bisulfate (plaVIX 75MG) 75 mg DAILY PO 09/22/24 09:00 10/22/24 08:59 Gabapentin (NEURontin 100 mg CAP) 300 mg BID PO 09/22/24 09:00 10/22/24 08:59 Hydralazine HCl (APRESOLine 20MG INJ) 10 mg Q6H PRN IV ADMINISTER FOR SBP > 180 09/21/24 19:00 10/21/24 18:59 Isosorbide Mononitrate (Imdur 30mg Sr) 30 mg DAILY PO 09/22/24 09:00 10/22/24 08:59 Lisinopril (Prinivil 20mg) 20 mg DAILY PO 09/22/24 09:00 10/22/24 08:59 Magnesium Sulfate 50 ml @ 0 mls/hr PROTOCOL PRN IV HYPOMAGNESEMIA 09/21/24 19:30 10/21/24 19:29 Metoprolol Succinate (TopROL XL) 50 mg BID PO 09/22/24 09:00 10/22/24 08:59 Montelukast Sodium (SinguLAIR) 10 mg DAILY PO 09/22/24 09:00 10/22/24 08:59 Morphine Sulfate (morPHINE 2MG SYG) 2 mg Q6H PRN IVP SEVERE PAIN (7-10) 09/21/24 18:00 09/28/24 17:59 Pantoprazole Sodium (PROTonix 40MG INJ) 40 mg DAILY IVP 09/21/24 19:00 10/21/24 18:59 09/21/24 19:09 40 MG Potassium Chloride 100 ml @ 100 mls/hr AD PRN IV POTASSIUM PROTOCOL 09/21/24 19:30 10/21/24 19:29 Potassium Chloride (K-Dur/Klor-Con 20meq) 20 meq AD PRN PO POTASSIUM PROTOCOL 09/21/24 19:30 10/21/24 19:29 Potassium Chloride (KCl 10% Elixir 20meq/15ml) 20 meq AD PRN PO POTASSIUM PROTOCOL 09/21/24 19:30 10/21/24 19:29 DIAGNOSTICS / RADIOLOGY: [ ] ASSESSMENT: Chest pain rule out ACS, POA CAD with history of recent inferior W[place] status post angioplasty and stent placement in the left posterior lateral branch with residual stenosis involving the mid LAD 75% Hypertension Hyperlipidemia Generalized fatigue with bilateral paresthesias the lower extremity Former smoker Depression Abdominal pain with epigastric tenderness differential pancreatitis versus PUD PLAN: Continue admission in the medical telemetry unit Continue heart healthy diet Serial troponins are negative. Pending 2D echo Medications reviewed and reconciled Continue dual antiplatelet therapy with aspirin and Plavix. Secondary to recent W[place] and residual mid LAD stenosis. Consulted cardiology Reviewed CT head and MRI brain, showing no acute findings will follow up with neurology recommendations CT abdomen/pelvis showing no acute findings Pending Psychiatry Naz. Patient denies any suicidal thoughts or homicidal ideation Monitor a.m. labs PRN Treatment - Add when necessary meds for nausea, vomiting, pain, constipation, insomnia. DVT/GI prophylaxis- Continue scd's and Protonix at current doses. Full CODE STATUS This document was generated in part using voice recognition software, occasional wrong word or sound alike substitutions may have occurred due to the inherent limitations of voice recognition software. Read the chart carefully and recognize using context, where the substitutions have occurred. Although every effort was made to edit the content, uniform cap operator and typing errors may occur MARYBEL BURR Sep 22, 2024 08:09
[2024-09-22] MEDS: metOPROLol sucCINATE 50 MG TAB.SR.24H PO SCH (08:44)
[2024-09-22] MEDS: buPROPion HCL 150 MG TABLET.SA PO SCH (08:44)
[2024-09-22] MEDS: LISINOPRIL 20 MG TABLET PO SCH (08:45)
[2024-09-22] MEDS: monteLUKAST sodIUM 10 MG TAB PO SCH (08:45)
[2024-09-22] MEDS: ISOSORBIDE MONO 30MG SR TAB PO SCH (08:45)
[2024-09-22] MEDS: GABApentin 100 MG CAPSULE PO SCH (08:45)
[2024-09-22] MEDS: cloPIDOgrel 75MG TAB PO SCH (08:45)
[2024-09-22] MEDS: ASPIRIN 81MG CHEW TAB PO SCH (08:47)
--- NOTE | 2024-09-22 10:02 | HMCIMG ---
Exam Type: MR BRAIN WO CON Clinical Information: lower extremty paresthesias Comparison: None Technique: T1 weighed sagittal, T1-weighted axial, T2-weighted axial, diffusion, apparent diffusion, exponential diffusion weighted axial, T2-weighted FLAIR sagittal, coronal and axial images of the brain. Findings: The examination is unremarkable. Park-white matter junction is preserved. No intra or extra axial lesions or fluid collections are seen. There are no infarcts. There are no hemorrhages. Signal intensity is normal throughout the periventricular white matter locations. The orbital contents and structures of the posterior fossa are intact. The sella and its contents and the structures of the skull base are intact as well. Impression: Normal exam without gadolinium.
--- NOTE | 2024-09-22 12:13 | CONS ---
[facility] CARDIOLOGY CONSULTATION REPORT Cardiology consultation note dictated for Kristie Myers MD Primary media consultant: Alec Woodward MD Date Patient Seen: Sep 22, 2024 Requesting Physician: America Pate MD Reason for Consultation: Chest pain History of Present Illness: This is a 58-year-old male with a past medical history of hypertension, dyslipidemia, lifelong tobacco use (quit 08/2024), COPD, late presentation inferior STEMI s/p PCI to the LPL with a 2.75 x 20 mm Trino [place] MARIA FERNANDA, with 75% mid LAD lesion with an EF 35% on 08/22/2024, and 2D Echo on 08/23/2024 with an EF 55 to 60% with stage I diastolic dysfunction who presented to the ED with complaints of dizziness, vertigo, and chest discomfort. CT of the head, abdomen, and MRI of the brain were negative for acute findings. Cardiology has been consulted for chest pain. Over the last week and a half, the patient has been experiencing an increased frequency of intermittent left-sided chest discomfort described as a dull to sharp quality with a 6-8/10 intensity. Episodes can last approximately 2 minutes and are accompanied by dizziness, nausea, near-syncope. Symptoms are aggravated with activity and are relieved with rest. Troponin of 8, 10, and 6. EKG demonstrated normal sinus rhythm with a heart rate of 81 bpm with q-waves in lead 3 and AVF. Of note, patient has a scheduled left heart catheterization on 09/29/2024 for a staged intervention to the mid LAD. He currently denies chest pain, chest pressure, palpitations, dizziness, or shortness of breath. He admits to a nonproductive cough, wheezing, and chest congestion for the last 6 months that his progressed with the warmer weather this week. Other symptoms he admits to is malaise, confusion, difficulty concentrating, and left hip discomfort. Past Medical History: As per HPI and summarized below Past Surgical History: Tonsillectomy Family History: The patient's father at age of54 from cancer. Social History: The patient lives with his . Habits: The patient quit smoking in 2024 after a 60 pack/year history. He denies alcohol or illicit drug use. Home Meds: Aspirin 81 mg daily Atorvastatin 40 mg nightly Clopidogrel 75 mg daily Metoprolol succinate 50 mg b.i.d. Lisinopril 20 mg daily Imdur 30 mg daily Bupropion 150 mg b.i.d. Singulair 10 mg daily Gabapentin 300 mg b.i.d. Current Meds: Current Medications Medications Dose Ordered Sig/Iris Start Time Stop Time Status Last Admin Morphine Sulfate 2 mg Q6H PRN 09/21/24 18:00 09/28/24 17:59 Pantoprazole Sodium 40 mg DAILY 09/21/24 19:00 10/21/24 18:59 09/22/24 08:46 Aspirin 81 mg DAILY 09/22/24 09:00 10/22/24 08:59 09/22/24 08:47 Clopidogrel Bisulfate 75 mg DAILY 09/22/24 09:00 10/22/24 08:59 09/22/24 08:45 Acetaminophen 500 mg Q6H PRN 09/21/24 18:00 10/21/24 17:59 Sodium Chloride 1,000 ml @ 50 mls/hr Q20H ONCE 09/21/24 18:00 09/22/24 13:59 09/21/24 18:18 Albuterol 1 UDVIAL Q6H PRN 09/21/24 21:00 10/21/24 20:59 09/22/24 07:20 Lisinopril 20 mg DAILY 09/22/24 09:00 10/22/24 08:59 09/22/24 08:45 Hydralazine HCl 10 mg Q6H PRN 09/21/24 19:00 10/21/24 18:59 Potassium Chloride 100 ml @ 100 mls/hr AD PRN 09/21/24 19:30 10/21/24 19:29 Potassium Chloride 20 meq AD PRN 09/21/24 19:30 10/21/24 19:29 Potassium Chloride 20 meq AD PRN 09/21/24 19:30 10/21/24 19:29 Magnesium Sulfate 50 ml @ 0 mls/hr PROTOCOL PRN 09/21/24 19:30 10/21/24 19:29 Atorvastatin Calcium 40 mg HS 09/22/24 21:00 10/22/24 20:59 Bupropion HCl 150 mg BID 09/22/24 09:00 10/22/24 08:59 09/22/24 08:44 Gabapentin 300 mg BID 09/22/24 09:00 10/22/24 08:59 09/22/24 08:45 Isosorbide Mononitrate 30 mg DAILY 09/22/24 09:00 10/22/24 08:59 09/22/24 08:45 Metoprolol Succinate 50 mg BID 09/22/24 09:00 10/22/24 08:59 09/22/24 08:44 Montelukast Sodium 10 mg DAILY 09/22/24 09:00 10/22/24 08:59 09/22/24 08:45 Review of Systems: Pertinent positives per HPI Physical Examination: GENERAL: No acute distress. HEAD: Normal with no signs of head trauma. EYES: PERRLA, EOMI, conjunctiva and sclera normal. ENT: Hearing grossly intact, normal oropharynx. NECK: Supple without JVD. There is no tenderness, lymphadenopathy, or masses. No thyromegaly. Normal carotid upstrokes without bruits. LUNGS: Clear breath sounds bilaterally. No wheezes, or rhonchi. HEART: Normal rate and rhythm. Normal S1 and S2 without murmurs, gallop or rub. VASC: Peripheral pulses +2 bilaterally. ABD: Bowel sounds normal, soft, nontender, no masses, no organomegaly. No audible bruits. : Not examined LYMPH: No lymphadenopathy noted. EXT: No clubbing, cyanosis or edema. SKIN: No rashes or lesions noted. NEURO: Awake, alert, and oriented x3. No focal sensory or strength deficits noted. Vital Signs (last 8hr) Date Time Temp Pulse Resp B/P (MAP) Pulse Ox O2 Delivery O2 Flow Rate FiO2 09/22/24 11:36 97.9 85 16 107/68 97 Room Air* 0 21 09/22/24 08:00 97.9 91 16 127/76 99 Room Air* 0 21 09/22/24 07:21 82 18 09/22/24 07:20 82 18 N/A Room Air 21 09/22/24 06:10 98.4 86 16 122/76 95 Room Air* 0 21 Laboratory: Hematology Labs: Test 09/22/24 07:00 Range/Units White Blood Count 8.5 4.8-10.8 K/uL Red Blood Count 4.33 L 4.50-6.20 MIL/uL Hemoglobin 13.4 L 14.0-18.0 g/dL Hematocrit 40.0 L 42-54 % Mean Corpuscular Volume 92.4 79-99 fL Mean Corpuscular Hemoglobin 30.9 27.0-33.0 pg Mean Corpuscular Hemoglobin Concent 33.5 32.0-36.0 g/dL Red Cell Distribution Width 13.2 11.0-15.5 % Platelet Count 204 130-400 K/uL Mean Platelet Volume 9.7 7.5-10.5 fL Immature Granulocyte % (Auto) 0.7 0-1 % Neutrophils (%) (Auto) 81.3 H 40.0-77.0 % Lymphocytes (%) (Auto) 15.7 L 21.0-51.0 % Monocytes (%) (Auto) 2.2 L 3.0-13.0 % Eosinophils (%) (Auto) 0.0 0.0-8.0 % Basophils (%) (Auto) 0.1 0.0-5.0 % Neutrophils # (Auto) 6.9 1.8-7.7 K/uL Lymphocytes # (Auto) 1.3 1.0-4.8 K/uL Monocytes # (Auto) 0.2 0.1-1.0 K/uL Eosinophils # (Auto) 0.00 0.00-0.70 K/uL Basophils # (Auto) 0.01 0.00-0.20 K/uL Absolute Immature Granulocyte (auto 0.06 0-1 K/uL Nucleated Red Blood Cells 0.0 0.0-0.19 % Chemistry Labs: Test 09/22/24 07:00 09/22/24 00:22 09/21/24 18:41 Range/Units Sodium Level 140 136-145 mmol/L Potassium Level 4.2 3.5-5.1 mmol/L Chloride Level 107 101-111 mmol/L Carbon Dioxide Level 25 21-32 mmol/L Blood Urea Nitrogen 15 7-18 mg/dL Creatinine 0.8 0.5-1.3 mg/dL Glomerular Filtration Rate Calc 102 >90 mL/min Random Glucose 165 H 70-105 mg/dL Total Calcium 9.5 8.5-10.1 mg/dL Troponin I High Sensitivity 6 4-75 ng/L Hemoglobin A1c 6.0 4.0-6.0 % Estimated Average Glucose (eAG) 126 70-126 mg/dL C-Reactive Protein, Quantitative 11.90 H 0.5-3.0 mg/L Lipase 26 16-77 U/L Procalcitonin < 0.05 L 0.05-0.5 ng/mL Thyroid Stimulating Hormone (TSH) 1.62 0.36-3.74 uIU/mL Diagnostics / Radiology: Impression and Plan: Chest pain Inferior STEMI s/p PCI to the LPL with a 2.75 x 20 mm [place] MARIA FERNANDA, with 75% mid LAD lesion with an EF 35% on 08/22/2024 2D Echo on 08/23/2024 with an EF 55 to 60% with stage I diastolic dysfunction DLD Lifelong tobacco use (quit 08/2024) COPD Chest pain Troponin of 8, 10, and 6 EKG demonstrated normal sinus rhythm with a heart rate of 81 bpm with q-waves in lead 3 and AVF Inferior STEMI s/p PCI to the LPL with a 2.75 x 20 mm [place] MARIA FERNANDA, with 75% mid LAD lesion on 08/22/2024 Of note, patient has a scheduled left heart catheterization on 09/29/2024 for a staged intervention to the mid LAD -Continue Aspirin 81 mg daily, Atorvastatin 40 mg nightly, Clopidogrel 75 mg daily, Metoprolol succinate 50 mg b.i.d., Lisinopril 20 mg daily, and Imdur 30 mg daily -NPO after midnight and re-eval in AM, consideration of coronary angiography tomorrow AUGUSTINE ROTHMAN [facility] Sep 22, 2024 12:13 KRISTIE MYERS DO Sep 23, 2024 21:36
--- NOTE | 2024-09-22 12:59 | NUR ---
DCP: HOME Per Ale Olvera [phone]. reports that pt requires her assistance with ADLS, transport and home management. Pt continues to work, light duty. Pt has a walker with seat, no in home care services or HD. PCP is Michel Jeffrey and uses [facility] for rx. DCP is home Addendum: 09/22/24 at 1300 by OFELIA MARAVILLA Amended: Links added.
--- NOTE | 2024-09-22 15:15 | NUR ---
DR WEAVER SAW THE PATIENT
--- NOTE | 2024-09-22 15:43 | CONS ---
CONSULTATION NOTE Date of Service: Sep 22, 2024 Reason for Consultation: eval of numbness Requesting Physician: Dr Pate HISTORY OF PRESENT ILLNESS: This is a 58 year old gentleman with a PMH remarkable for obesity, HTN, HLD, DM2, tobacco abuse, alcohol abuse, NSTEMI who was admitted for an eval of chest pain. The pt was recently dg with NSTEMI about 1 month ago. He expresses that over the past year he has been experiencing bilataral hand and feet numbness and tingling. He mentions that this is constant since then. He also states having "mental fogginess". He used to drink and smoke heavy for several years but he denies that this will reduce the amount of calories per day or change in dietary habits. Since his NSTEMI he stopped smoking and drinking. The pt has cold hands and feet and he denies having any weakness. The pt has been complaining of cough, chest pain for the past several days and that is the reason for admission. Cardiology has evaluated the patient. MRI brain w/o contrast was negative for stroke . REVIEW OF SYSTEMS CONSTITUTIONAL: Denies fever, chills, or fatigue. HEAD/FACE: No signs of trauma. EENT: Denies eye pain, blurred vision, double vision, or light sensitivity. RESPIRATORY: Denies shortness of breath, cough, wheezing CARDIOVASCULAR: chest pain GASTROINTESTINAL/ABDOMINAL: Denies abdominal pain, constipation, diarrhea, nausea or vomiting GENITOURINARY: Denies dysuria or hematuria. MUSCULOSKELETAL: Denies joint pain, tenderness, or trauma. INTEGUMENTARY: Denies rash or itchiness NEUROLOGICAL/PSYCH: hand feet paresthesias. PAST MEDICAL HISTORY: as above PAST SURGICAL HISTORY: non contributory PAST SOCIAL HISTORY: No tobacco, alcohol or rec drug abuse FAMILY HISTORY: No family of strokes Coded Allergies: No Known Allergies (Unverified Allergy, Unknown, 08/22/24) PHYSICAL EXAM EYES: Anicteric. Pupils equal and reactive. HENT: No oral thrush seen, moist Oral mucosa NECK: Supple, no JVD or thyromegaly. LUNGS: Good air entry. No rales, no rhonchi. CARDIOVASCULAR: S1, S2 regular. No murmur heard. ABDOMEN: Soft, non tender, bowel sounds present, no organomegaly CENTRAL NERVOUS SYSTEM: Awake, alert, oriented x 3. No focal deficits. SKIN: No rashes, no swelling. LYMPHATICS: No peripheral lymphadenopathy MUSCULOSKELETAL: No joint swelling, erythema or tenderness. EXTREMITIES: No cyanosis or clubbing BACK: No deformity, no pressure ulcer. GENITOURINARY: No dysuria or hematuria Vital Sign (Last 24 Hours) 09/22/24 11:36 Temp 97.9 Pulse 85 Resp 16 B/P (MAP) 107/68 Pulse Ox 97 O2 Delivery Room Air* O2 Flow Rate 0 FiO2 21 LABS: Laboratory: Test 09/22/24 07:00 09/22/24 00:22 09/21/24 18:41 09/21/24 18:25 Range/Units White Blood Count 8.5 4.8-10.8 K/uL Red Blood Count 4.33 L 4.50-6.20 MIL/uL Hemoglobin 13.4 L 14.0-18.0 g/dL Hematocrit 40.0 L 42-54 % Mean Corpuscular Volume 92.4 79-99 fL Mean Corpuscular Hemoglobin 30.9 27.0-33.0 pg Mean Corpuscular Hemoglobin Concent 33.5 32.0-36.0 g/dL Red Cell Distribution Width 13.2 11.0-15.5 % Platelet Count 204 130-400 K/uL Mean Platelet Volume 9.7 7.5-10.5 fL Immature Granulocyte % (Auto) 0.7 0-1 % Neutrophils (%) (Auto) 81.3 H 40.0-77.0 % Lymphocytes (%) (Auto) 15.7 L 21.0-51.0 % Monocytes (%) (Auto) 2.2 L 3.0-13.0 % Eosinophils (%) (Auto) 0.0 0.0-8.0 % Basophils (%) (Auto) 0.1 0.0-5.0 % Neutrophils # (Auto) 6.9 1.8-7.7 K/uL Lymphocytes # (Auto) 1.3 1.0-4.8 K/uL Monocytes # (Auto) 0.2 0.1-1.0 K/uL Eosinophils # (Auto) 0.00 0.00-0.70 K/uL Basophils # (Auto) 0.01 0.00-0.20 K/uL Absolute Immature Granulocyte (auto 0.06 0-1 K/uL Nucleated Red Blood Cells 0.0 0.0-0.19 % Sodium Level 140 136-145 mmol/L Potassium Level 4.2 3.5-5.1 mmol/L Chloride Level 107 101-111 mmol/L Carbon Dioxide Level 25 21-32 mmol/L Blood Urea Nitrogen 15 7-18 mg/dL Creatinine 0.8 0.5-1.3 mg/dL Glomerular Filtration Rate Calc 102 >90 mL/min Random Glucose 165 H 70-105 mg/dL Total Calcium 9.5 8.5-10.1 mg/dL Troponin I High Sensitivity 6 4-75 ng/L Hemoglobin A1c 6.0 4.0-6.0 % Estimated Average Glucose (eAG) 126 70-126 mg/dL C-Reactive Protein, Quantitative 11.90 H 0.5-3.0 mg/L Lipase 26 16-77 U/L Procalcitonin < 0.05 L 0.05-0.5 ng/mL Thyroid Stimulating Hormone (TSH) 1.62 0.36-3.74 uIU/mL Urine Color COLORLESS YELLOW Urine Appearance CLEAR CLEAR Urine pH 5.5 5.0-8.0 Urine Specific [place] 1.002 1.001-1.031 Urine Protein NEGATIVE NEGATIVE mg/dL Urine Glucose (UA) NEGATIVE NEGATIVE mg/dL Urine Ketones NEGATIVE NEGATIVE mg/dL Urine Occult Blood NEGATIVE NEGATIVE Urine Nitrate NEGATIVE NEGATIVE Urine Bilirubin NEGATIVE NEGATIVE mg/dL Urine Urobilinogen 0.2 0.2-1.0 mg/dL Urine Leukocyte Esterase NEGATIVE NEGATIVE Tito/uL Test 09/21/24 18:08 Range/Units SARS-CoV-2 Antigen (Rapid) PRESUMPTIVE NEGATIVE NEGATIVE DIAGNOSTICS / RADIOLOGY: MRI brain w/o contrast: negative ASSESSMENT / PLAN: 1).- Chronic peripheral systemic paresthesias - the patient complaints of chr onic (more than 1 year) of constant bilateral hands and feet paresthesias that has worsen over the past 2 weeks. He has several risks factors for PAD and possible causes of chronic systemic paresthesias and mental "fogginess" including chronic alcohol and tobacco consumption, possible vitamin deficiencies including folate, vit b12 def. Other possible causes includes syphilis, hypot hyroidism, heavy metal exposure, autoimmune diseases like vasculitis etc. MRI brain w/o contrast was negative for strokes. Request lab work up. No other further tests are needed during this hospitalization. Thank you for your consultation. I will sign off. MATTIE CORDERO MD Sep 22, 2024 15:43
[2024-09-22 18:04] LABS: THYROID STIMULATING HORMONE 0.65 uIU/mL (0.36-3.74)
[2024-09-22 19:06] VITALS: PULSE 81; RESP 18; O2SAT 98
[2024-09-22 21:00] VITALS: O2SAT 97
[2024-09-22 21:03] VITALS: BP 126/80; PULSE 67; RESP 18; TEMP 97.9
[2024-09-22] MEDS: atorVAStatin 40 MG TABLET PO SCH (21:35)
[2024-09-22] MEDS: guaiFENesin SUGAR-FREE 100 MG/5 ML UDCUP PO PRN (23:17)
[2024-09-23] VITALS (20 sets, daily range): BP systolic 99–137; BP diastolic 68–87; PULSE 63–85; RESP 17–19; TEMP 97.5–98; O2SAT 92–97
--- NOTE | 2024-09-23 07:08 | PN ---
PROGRESS NOTE PROBLEM LIST: Unstable angina Known coronary artery disease involving mid LAD Posterolateral myocardial infarction STEMI late presentation intervention to left posterolateral branch History of nicotine dependence with cessation after [place] [facility] HISTORY OF PRESENT ILLNESS: Patient was admitted to the [facility] of chest pain as well as dizziness. MRI brain was done normal. Patient has ruled out for any evidence of myocardial necrosis with serial cardiac enzymes. He has known LAD stenosis and was pending intervention electively on September 29, 2024 REVIEW OF SYSTEMS: No fever, headache, chest pain, abdominal pain, nausea, vomiting, or diarrhea. VITAL SIGNS Vital Signs Date Time Temp Pulse Resp B/P (MAP) Pulse Ox O2 Delivery O2 Flow Rate FiO2 09/23/24 03:47 97.9 68 18 115/68 96 Room Air 09/22/24 21:00 0 21 LABS/MEDS Laboratory Tests Test 09/22/24 17:03 Vitamin B12 Level 395 pg/mL (193-986) Thyroid Stimulating Hormone (TSH) 0.65 uIU/mL (0.36-3.74) # Rapid Plasma Reagin NONREACTIVE (NONREACTIVE) Current Medications Methylprednisolone Sodium Succinate 125 mg ONCE ONCE IVP Last administered on 09/21/24at 17:18; Start 09/21/24 at 15:30; Stop 09/21/24 at 15:31; Status DC Meclizine HCl 50 mg ONCE ONCE PO Last administered on 09/21/24at 17:18; Start 09/21/24 at 15:30; Stop 09/21/24 at 15:31; Status DC Sodium Chloride 1,000 ml @ 0 mls/hr ONCE ONCE IV Last administered on 09/21/24at 17:19; Start 09/21/24 at 15:30; Stop 09/21/24 at 15:31; Status DC Albuterol Sulfate 2.5 mg ONCE ONCE IH Last administered on 09/21/24at 17:33; Start 09/21/24 at 17:30; Stop 09/21/24 at 17:31; Status DC Morphine Sulfate 2 mg Q6H PRN IVP; Start 09/21/24 at 18:00; Stop 09/28/24 at 17:59 Pantoprazole Sodium 40 mg DAILY IVP Last administered on 09/22/24at 08:46; Start 09/21/24 at 19:00; Stop 10/21/24 at 18:59 Aspirin 81 mg DAILY PO Last administered on 09/22/24at 08:47; Start 09/22/24 at 09:00; Stop 10/22/24 at 08:59 Clopidogrel Bisulfate 75 mg DAILY PO Last administered on 09/22/24at 08:45; Start 09/22/24 at 09:00; Stop 10/22/24 at 08:59 Acetaminophen 500 mg Q6H PRN PO; Start 09/21/24 at 18:00; Stop 10/21/24 at 17:59 Sodium Chloride 1,000 ml @ 50 mls/hr Q20H ONCE IV Last administered on 09/21/24at 18:18; Start 09/21/24 at 18:00; Stop 09/22/24 at 13:59; Status DC Albuterol 1 UDVIAL Q6H PRN IH Last administered on 09/22/24at 07:20; Start 09/21/24 at 21:00; Stop 10/21/24 at 20:59 Lisinopril 20 mg DAILY PO Last administered on 09/22/24at 08:45; Start 09/22/24 at 09:00; Stop 10/22/24 at 08:59 Hydralazine HCl 10 mg Q6H PRN IV; Start 09/21/24 at 19:00; Stop 10/21/24 at 18:59 Potassium Chloride 100 ml @ 100 mls/hr AD PRN IV; Start 09/21/24 at 19:30; Stop 10/21/24 at 19:29 Potassium Chloride 20 meq AD PRN PO; Start 09/21/24 at 19:30; Stop 10/21/24 at 19:29 Potassium Chloride 20 meq AD PRN PO; Start 09/21/24 at 19:30; Stop 10/21/24 at 19:29 Magnesium Sulfate 50 ml @ 0 mls/hr PROTOCOL PRN IV; Start 09/21/24 at 19:30; Stop 10/21/24 at 19:29 Atorvastatin Calcium 40 mg HS PO Last administered on 09/22/24at 21:35; Start 09/22/24 at 21:00; Stop 10/22/24 at 20:59 Bupropion HCl 150 mg BID PO Last administered on 09/22/24at 21:35; Start 09/22/24 at 09:00; Stop 10/22/24 at 08:59 Gabapentin 300 mg BID PO Last administered on 09/22/24at 21:34; Start 09/22/24 at 09:00; Stop 10/22/24 at 08:59 Isosorbide Mononitrate 30 mg DAILY PO Last administered on 09/22/24 08:45; Start 09/22/24 at 09:00; Stop 10/22/24 at 08:59 Metoprolol Succinate 50 mg BID PO Last administered on 09/22/24at 21:35; Start 09/22/24 at 09:00; Stop 10/22/24 at 08:59 Montelukast Sodium 10 mg DAILY PO Last administered on 09/22/24 08:45; Start 09/22/24 at 09:00; Stop 10/22/24 at 08:59 Guaifenesin 200 mg Q6H6 PRN PO Last administered on 09/22/24 23:17; Start 09/22/24 at 23:00; Stop 10/22/24 at 22:59 PHYSICAL EXAMINATION: GENERAL: No acute distress. HEENT: Normocephalic, atraumatic. CARDIAC: Positive S1 and S2. No murmurs. LUNGS: Clear to auscultation bilaterally. ABDOMEN: Bowel sounds present, soft, nontender. EXTREMITIES: No edema bilaterally. NEUROLOGIC: Cranial nerves 2-12 grossly intact. PSYCHIATRIC: Calm. TELEMETRY: Sinus rhythm ASSESSMENT: Unstable angina See above PLAN: Patient will proceed with coronary intervention to mid LAD later this afternoon. Risks and goals of procedure have been discussed with the patient and informed consent has been obtained. SOREN GEE MD Sep 23, 2024 07:08
[2024-09-23 08:24] LABS: INR 0.97 (0.85-1.15); PROTHROMBIN TIME 10.3 SEC (9.6-11.6)
[2024-09-23 08:25] LABS: PARTIAL THROMBOPLASTIN TIME 25.9 SEC (26.3-35.5)
--- NOTE | 2024-09-23 10:36 | PN ---
[facility] PROGRESS NOTE Date of Service: Sep 23, 2024 Time of Service: 10:35 SUBJECTIVE: [ ] 58-year-old male with a past medical history of essential hypertension, CAD with recent inferior AR post stent placement, hyperlipidemia and depression was admitted to the medical telemetry unit with diagnosis of chest pain to rule out ACS. Cardiology, neurology and Psychiatry consulted. 09/22/2024 today at bedside evaluation patient is alert and oriented x3. Patient's latest vital signs are stable, afebrile, satting 99% on room air. Leukocytosis resolved, there is bandemia. BMP is stable. Head CT and MRI of brain showed no acute findings. CT abdomen/pelvis is negative. Continue aspirin, Plavix, Imdur, metoprolol succinate. We will follow up with cardiology's recommendations. 09/23/2024 patient this morning is NPO, pending left heart catheterization with Dr. Woodward this afternoon. Patient was alert and oriented x3. is at bedside. Patient reports no chest pain or shortness of breath but is complaining of sciatic pain. Vital signs the past 24 hours have been stable. Latest labs are stable. We will follow up post cardiac intervention for further recommendations. Possibly to be discharged later today. REVIEW OF SYSTEMS CONSTITUTIONAL: Denies fevers, chills, or night sweats. No unintentional weight loss reported. Positive for generalized fatigue NEUROLOGICAL: Denies headache, amaurosis fugax, motor weakness, sensory deficit, vertigo/spinning sensation, gait abnormalities, or tremors. Positive for paresthesias in the bilateral lower extremity ENT: No hearing loss, otalgia, otorrhea, rhinitis, rhinorrhea, hoarseness, or sore throat. CARDIOVASCULAR: Denies any exertional angina, dyspnea on exertion, orthopnea, paroxysmal nocturnal dyspnea, palpitations, life-threatening arrhythmias, claudication. Positive for chest pain PULMONARY: Positive for cough, sputum production. Denied any hemoptysis GASTROINTESTINAL: Denies any type of dysphagia to either liquids or solids. Denies nausea, vomiting, pyrosis, early satiety, abdominal pain, constipation, or changes in stool consistency or caliber. Denies coffee-ground emesis, hematemesis, hematochezia, or melanotic stools. Positive for diarrhea GENITOURINARY: Denies frequency, urgency, nocturia, hematuria or incontinence (Storage/Irritative symptoms.) Low urinary stream, straining to void, urinary intermittency or hesitancy, splitting of the voiding stream, terminal dribbling. ENDOCRINOLOGIC: Denies polyuria, polydipsia, polyphagia or heat/cold intolerances. HEMATOLOGIC: Denies thrombophilia/previous clots, or coagulopathy/bleeding disorders. ONCOLOGIC: Denies personal history of malignancy. DERMATOLOGIC: Denies rashes or pruritus. PSYCHIATRIC: Denies any suicidal or homicidal ideation. Denies hallucinations. PHYSICAL EXAM GENERAL APPEARANCE: The patient is awake, alert, and oriented, in no acute cardiopulmonary distress. NEUROLOGICAL: Cranial nerves II-XII grossly intact. Motor is 5/5 in bilateral upper and lower extremities proximal to distal. No sensory deficits. HEENT: Face is symmetric. Pupils are equal and reactive. Extraocular movements are intact. NECK: Supple. No JVD. No thyromegaly. No submental, submandibular, pre- /postauricular, occipital or supraclavicular lymphadenopathy. CHEST: Normal chest expansion. No Telemetry. LUNGS: Absence of any rales, rhonchi or any wheezing. CARDIOVASCULAR: Regular. S1 and S2 normal. No appreciable rubs, murmurs or gallops. ABDOMEN: Soft, tenderness to palpation in the epigastric area, and nondistended. There is no rebound, voluntary guarding, or rigidity. : Deferred. No Estrada. EXTREMITIES: Non-edematous and not cyanotic. No clubbing. Good capillary refill. SKIN: No skin breakdown. Vital Signs (last 8hr) Date Time Temp Pulse Resp B/P (MAP) Pulse Ox O2 Delivery O2 Flow Rate FiO2 09/23/24 08:45 85 18 N/A Room Air 09/23/24 07:55 97.9 72 19 131/77 93 Room Air 09/23/24 03:47 97.9 68 18 115/68 96 Room Air LABS: Laboratory: Test 09/23/24 08:03 09/22/24 17:03 09/22/24 07:00 09/22/24 00:22 Range/Units Prothrombin Time 10.3 9.6-11.6 SEC Prothromb Time International Ratio 0.97 0.85-1.15 Activated Partial Thromboplast Time 25.9 L 26.3-35.5 SEC Vitamin B12 Level 395 193-986 pg/mL Thyroid Stimulating Hormone (TSH) 0.65 # 0.36-3.74 uIU/mL Rapid Plasma Reagin NONREACTIVE NONREACTIVE White Blood Count 8.5 4.8-10.8 K/uL Red Blood Count 4.33 L 4.50-6.20 MIL/uL Hemoglobin 13.4 L 14.0-18.0 g/dL Hematocrit 40.0 L 42-54 % Mean Corpuscular Volume 92.4 79-99 fL Mean Corpuscular Hemoglobin 30.9 27.0-33.0 pg Mean Corpuscular Hemoglobin Concent 33.5 32.0-36.0 g/dL Red Cell Distribution Width 13.2 11.0-15.5 % Platelet Count 204 130-400 K/uL Mean Platelet Volume 9.7 7.5-10.5 fL Immature Granulocyte % (Auto) 0.7 0-1 % Neutrophils (%) (Auto) 81.3 H 40.0-77.0 % Lymphocytes (%) (Auto) 15.7 L 21.0-51.0 % Monocytes (%) (Auto) 2.2 L 3.0-13.0 % Eosinophils (%) (Auto) 0.0 0.0-8.0 % Basophils (%) (Auto) 0.1 0.0-5.0 % Neutrophils # (Auto) 6.9 1.8-7.7 K/uL Lymphocytes # (Auto) 1.3 1.0-4.8 K/uL Monocytes # (Auto) 0.2 0.1-1.0 K/uL Eosinophils # (Auto) 0.00 0.00-0.70 K/uL Basophils # (Auto) 0.01 0.00-0.20 K/uL Absolute Immature Granulocyte (auto 0.06 0-1 K/uL Nucleated Red Blood Cells 0.0 0.0-0.19 % Sodium Level 140 136-145 mmol/L Potassium Level 4.2 3.5-5.1 mmol/L Chloride Level 107 101-111 mmol/L Carbon Dioxide Level 25 21-32 mmol/L Blood Urea Nitrogen 15 7-18 mg/dL Creatinine 0.8 0.5-1.3 mg/dL Glomerular Filtration Rate Calc 102 >90 mL/min Random Glucose 165 H 70-105 mg/dL Total Calcium 9.5 8.5-10.1 mg/dL Troponin I High Sensitivity 6 4-75 ng/L Test 09/21/24 18:41 09/21/24 18:25 09/21/24 18:08 Range/Units Hemoglobin A1c 6.0 4.0-6.0 % Estimated Average Glucose (eAG) 126 70-126 mg/dL C-Reactive Protein, Quantitative 11.90 H 0.5-3.0 mg/L Lipase 26 16-77 U/L Procalcitonin < 0.05 L 0.05-0.5 ng/mL Urine Color COLORLESS YELLOW Urine Appearance CLEAR CLEAR Urine pH 5.5 5.0-8.0 Urine Specific [place] 1.002 1.001-1.031 Urine Protein NEGATIVE NEGATIVE mg/dL Urine Glucose (UA) NEGATIVE NEGATIVE mg/dL Urine Ketones NEGATIVE NEGATIVE mg/dL Urine Occult Blood NEGATIVE NEGATIVE Urine Nitrate NEGATIVE NEGATIVE Urine Bilirubin NEGATIVE NEGATIVE mg/dL Urine Urobilinogen 0.2 0.2-1.0 mg/dL Urine Leukocyte Esterase NEGATIVE NEGATIVE Tito/uL SARS-CoV-2 Antigen (Rapid) PRESUMPTIVE NEGATIVE NEGATIVE Current Medications Medications (Trade) Dose Ordered Sig/Iris Route PRN Reason Start Time Stop Time Status Last Admin Dose Admin Acetaminophen (TYLenol 500MG TAB) 500 mg Q6H PRN PO MILD PAIN (1-3) 09/21/24 18:00 10/21/24 17:59 Albuterol (DUOneb) 1 UDVIAL Q6H PRN IH SHORTNESS OF BREATH 09/21/24 21:00 10/21/24 20:59 09/22/24 07:20 1 UDVIAL Aspirin (Aspirin 81mg Chew Tab) 81 mg DAILY PO 09/22/24 09:00 10/22/24 08:59 09/23/24 09:33 81 MG Atorvastatin Calcium (LIPItor 40MG) 40 mg HS PO 09/22/24 21:00 10/22/24 20:59 09/22/24 21:35 40 MG Bupropion HCl (WellBUTrin SR 150MG) 150 mg BID PO 09/22/24 09:00 10/22/24 08:59 09/22/24 21:35 150 MG Clopidogrel Bisulfate (plaVIX 75MG) 75 mg DAILY PO 09/22/24 09:00 10/22/24 08:59 09/23/24 09:32 75 MG Gabapentin (NEURontin 100 mg CAP) 300 mg BID PO 09/22/24 09:00 10/22/24 08:59 09/22/24 21:34 300 MG Guaifenesin (RobiTUSSin SUGAR-FREE 100 MG/ 5 ML UDCUP) 200 mg Q6H6 PRN PO COUGH 09/22/24 23:00 10/22/24 22:59 09/22/24 23:17 200 MG Hydralazine HCl (APRESOLine 20MG INJ) 10 mg Q6H PRN IV ADMINISTER FOR SBP > 180 09/21/24 19:00 10/21/24 18:59 Isosorbide Mononitrate (Imdur 30mg Sr) 30 mg DAILY PO 09/22/24 09:00 10/22/24 08:59 09/23/24 09:32 30 MG Lisinopril (Prinivil 20mg) 20 mg DAILY PO 09/22/24 09:00 10/22/24 08:59 09/23/24 09:32 20 MG Magnesium Sulfate 50 ml @ 0 mls/hr PROTOCOL PRN IV HYPOMAGNESEMIA 09/21/24 19:30 10/21/24 19:29 Metoprolol Succinate (TopROL XL) 50 mg BID PO 09/22/24 09:00 10/22/24 08:59 09/23/24 09:32 50 MG Montelukast Sodium (SinguLAIR) 10 mg DAILY PO 09/22/24 09:00 10/22/24 08:59 09/22/24 08:45 10 MG Morphine Sulfate (morPHINE 2MG SYG) 2 mg Q6H PRN IVP SEVERE PAIN (7-10) 09/21/24 18:00 09/28/24 17:59 Pantoprazole Sodium (PROTonix 40MG INJ) 40 mg DAILY IVP 09/21/24 19:00 10/21/24 18:59 09/23/24 09:31 40 MG Potassium Chloride 100 ml @ 100 mls/hr AD PRN IV POTASSIUM PROTOCOL 09/21/24 19:30 10/21/24 19:29 Potassium Chloride (K-Dur/Klor-Con 20meq) 20 meq AD PRN PO POTASSIUM PROTOCOL 09/21/24 19:30 10/21/24 19:29 Potassium Chloride (KCl 10% Elixir 20meq/15ml) 20 meq AD PRN PO POTASSIUM PROTOCOL 09/21/24 19:30 10/21/24 19:29 DIAGNOSTICS / RADIOLOGY: [ ] ASSESSMENT: Chest pain rule out ACS, POA chest pain resolved. CAD with history of recent inferior AR status post angioplasty and stent placement in the left posterior lateral branch with residual stenosis involving the mid LAD 75% Hypertension Hyperlipidemia Generalized fatigue with bilateral paresthesias the lower extremity Former smoker Depression Abdominal pain with epigastric tenderness differential pancreatitis versus PUD Sciatic pain, POA Osteoarthritis, POA Morbid obesity BMI 47.3 PLAN: Continue admission in the medical telemetry unit NPO Dr. Woodward is planning left heart catheterization this afternoon Serial troponins are negative. Medications reviewed and reconciled Continue dual antiplatelet therapy with aspirin and Plavix. Secondary to recent AR and residual mid LAD stenosis. Reviewed CT head and MRI brain, showing no acute findings will follow up with neurology recommendations CT abdomen/pelvis showing no acute findings Pending Psychiatry Naz. Patient denies any suicidal thoughts or homicidal ideation Monitor a.m. labs PRN Treatment - Add when necessary meds for nausea, vomiting, pain, constipation, insomnia. DVT/GI prophylaxis- Continue scd's and Protonix at current doses. Full CODE STATUS Disposition: Home once cleared by senior insight manager international, possibly later today This document was generated in part using voice recognition software, occasional wrong word or sound alike substitutions may have occurred due to the inherent limitations of voice recognition software. Read the chart carefully and recognize using context, where the substitutions have occurred. Although every effort was made to edit the content, master data analyst and typing errors may occur MARYBEL BURR Sep 23, 2024 10:36
[2024-09-23] MEDS ORDERED: LIDOCAINE HCL 400MG/20ML VIAL ONE (15:22)
[2024-09-23] MEDS ORDERED: BIVALIRUDIN 250 MG/VIAL IV ONE ×2 (15:22→15:47)
[2024-09-23] MEDS ORDERED: HEParin-NS 1,000 UNIT/500 ML 1,000 ML IV ONE (15:23)
[2024-09-23] MEDS ORDERED: NITROGLYCERIN 50MG VIAL ONE (15:23)
[2024-09-23] MEDS ORDERED: IOHEXOL 350 MG/ML 100ML INFUS..BTL IV ONE (15:23)
[2024-09-23] MEDS ORDERED: MIDAZOLAM HCL 1 MG/ML 2ML VIAL ONE ×2 (15:42→16:25)
[2024-09-23] MEDS ORDERED: FENTanyl CITRate PF 50 MCG/1 ML 2ML VIAL ONE (15:42)
[2024-09-23] MEDS ORDERED: morPHINE 2 MG SYG ONE (16:48)
--- NOTE | 2024-09-23 17:11 | PRN ---
PROCEDURES: 1. Right common femoral arterial sheath placement. 2. Lithotripsy angioplasty to proximal mid LAD with the use of a 3 mm x 12 mm lithotripsy balloon for a total of 9 treatments at 6 atmospheres in prox and mid LAD 3. Conscious sedation 4. 3.5 mm x 38 mm resolute abdi stent placed to proximal mid LAD deployed to 3.50 mm INDICATION: Unstable angina Previous posterolateral myocardial infarction STEMI proximally 2 weeks ago with residual LAD stenosis noted Readmission to the hospital for unstable angina Known LAD stenosis 75% INTERVENTIONAL REPORT: Patient was brought to the catheterization suite and prepped and draped in a sterile fashion. An IV was started if not already in place and both groins were exposed for arterial access. 2% lidocaine was used for local anesthesia and then a micro puncture kit was used to gain access and once free flow blood was seen modified Seldinger technique was utilized to place a 6 Tamazight sheath in the right common femoral artery. Next a 6 Tamazight Q 4 guide catheter was placed into the left coronary system and then a choice PT extra-support 0.014 in wire was then placed in the distal ongoing LAD under fluoroscopic guidance. Next a 3 mm x 12 mm lithotripsy balloon was then placed in the mid LAD and overlapping treatments were done at 6 atmospheres for a total of 9 treatments in the proximal and mid LAD. Next a 3.5 mm x 38 mm resolute abdi stent was then placed in the proximal LAD extending to the mid LAD and deployed. Follow up contrast injection revealed no evidence of dissection or perforation with FRANCISCO JAVIER 3 flow noted within the LAD. There was some plaque redistribution noted in diagonal branch system patient remained asymptomatic FRANCISCO JAVIER 3 flow was noted and at end of case a sheath shot was performed and closure of the arteriotomy site was performed with a Perclose device. No complications occurred. RECOMMENDATIONS: 4 hours bedrest IV hydration for 6 hours Continue dual antiplatelet therapy Discharge in SOREN Hart MD Sep 23, 2024 17:11
[2024-09-23] MEDS: 0.9%NACL 1000ML 1,000 ML IV SCH (17:55)
[2024-09-23] MEDS: acetaMINOPHEN 500 MG TABLET PO PRN (20:24)
[2024-09-24 04:47] VITALS: BP 145/69; PULSE 65; RESP 18; TEMP 98.5
--- NOTE | 2024-09-24 06:18 | PN ---
[facility] Cardiology Progress Note CARDIOLOGY PROGRESS NOTE SEPTEMBER 24, 2024 Problems: 1. Unstable angina 2. CAD status post placement of a three point 5 x 38 mm resolute abdi stent in the proximal and mid LAD 3. Previous posterolateral STEMI late presentation status post PCI to the left posterolateral branch 4. Dyslipidemia 5. Former smoker 6. Hypertension 7. Depression Blood pressure is running 140/70 heart rate in the 60s the patient is afebrile. White count 8.5 hemoglobin 13 platelet count [id number]. Potassium 4.2 BUN 15 creatinine 0.8. The patient continues on aspirin atorvastatin clopidogrel isosorbide mononitrate lisinopril metoprolol succinate pantoprazole and potassium protocol. Cath site shows no hematoma. From a cardiac standpoint the patient can be discharged home today. We will discontinue his isosorbide medicine he will continue with aspirin clopidogrel metoprolol lisinopril. He can follow up with Dr. Woodward in 1-2 weeks. MIS KEY MD Sep 24, 2024 06:18
[2024-09-24 06:59] VITALS: PULSE 72; RESP 20; O2SAT 94
[2024-09-24 07:08] VITALS: PULSE 72; RESP 20
[2024-09-24 07:36] VITALS: O2SAT 94
[2024-09-24 08:00] VITALS: BP 120/85; PULSE 60; RESP 19; TEMP 97.7
--- NOTE | 2024-09-24 08:33 | DS ---
Discharge Summary Hospital Course Summary: 58-year-old male with a past medical history of essential hypertension, CAD with recent inferior IA post stent placement, hyperlipidemia and depression was admitted to the medical telemetry unit with diagnosis of chest pain to rule out ACS. Cardiology, neurology and Psychiatry consulted. 09/22/2024 today at bedside evaluation patient is alert and oriented x3. Patient's latest vital signs are stable, afebrile, satting 99% on room air. Leukocytosis resolved, there is bandemia. BMP is stable. Head CT and MRI of brain showed no acute findings. CT abdomen/pelvis is negative. Continue aspirin, Plavix, Imdur, metoprolol succinate. We will follow up with cardiology's recommendations. 09/23/2024 patient this morning is NPO, pending left heart catheterization with Dr. Woodward this afternoon. Patient was alert and oriented x3. is at bedside. Patient reports no chest pain or shortness of breath but is complaining of sciatic pain. Vital signs the past 24 hours have been stable. Latest labs are stable. We will follow up post cardiac intervention for further recommendations. Possibly to be discharged later today. 09/24/2024 patient was found alert and oriented x3. Latest labs and vital signs are stable. reviewed patient's chart and evaluated patient and reports patient is cleared from their standpoint for discharge. Advised the patient to follow up with wildlife officer Dr. Woodward in 1-2 weeks for further evaluation. Recommended to discontinue isosorbide mononitrate and continue with aspirin, Plavix, metoprolol and lisinopril. Medically patient is stable and cleared for discharge. [employer] Labourer(s): [employer] Dr. Woodward/Dr. Peraza Procedure(s): Left heart catheterization 09/23/[address] Woodward Assessment/Plan: ASSESSMENT: Chest pain rule out ACS, POA chest pain resolved. ACS ruled out CAD with history of recent inferior IA status post angioplasty and stent placement in the left posterior lateral branch with residual stenosis involving the mid LAD 75% Hypertension Hyperlipidemia Generalized fatigue with bilateral paresthesias the lower extremity Former smoker Depression Abdominal pain with epigastric tenderness differential pancreatitis versus PUD Sciatic pain, POA Osteoarthritis, POA Morbid obesity BMI 47.3 PLAN: Cardiac and medically cleared and stable for discharge Resumed diet Dr. Woodward is planning left heart catheterization this afternoon Serial troponins are negative. Medications reviewed and reconciled Continue dual antiplatelet therapy with aspirin and Plavix. Secondary to recent IA and residual mid LAD stenosis. Reviewed CT head and MRI brain, showing no acute findings will follow up with neurology recommendations CT abdomen/pelvis showing no acute findings Pending Psychiatry Naz. Patient denies any suicidal thoughts or homicidal ideation Monitor a.m. labs PRN Treatment - Add when necessary meds for nausea, vomiting, pain, constipation, insomnia. DVT/GI prophylaxis- Continue scd's and Protonix at current doses. Full CODE STATUS Was continue isosorbide mononitrate Disposition: Home today This document was generated in part using voice recognition software, occasional wrong word or sound alike substitutions may have occurred due to the inherent limitations of voice recognition software. Read the chart carefully and recognize using context, where the substitutions have occurred. Although every effort was made to edit the content, it security architect and typing errors may occur Discharge Instructions: Discharged home. Follow up with PCP in 2-3 days for continued evaluation. Follow up with wildlife officer in 1-2 weeks for continued evaluation. Stop isosorbide mononitrate. Continue all other cardiac meds. This case was discussed with Dr. Pickard and above plan was formulated Home Medications: Active Scripts Metoprolol Succinate (Metoprolol Succinate) 50 Mg Tab.er.24h, 1 TAB PO BID for 30 Days, #60 TAB 0 Refills Prov:MARYBEL BURR [facility] 09/24/24 Reported Medications Clopidogrel Bisulfate (Clopidogrel) 75 Mg Tablet, 1 TAB PO DAILY for 30 Days, #30 TAB 0 Refills 09/21/24 Aspirin (ASPIRIN 81MG CHEW TAB) 81 Mg Tab.chew, 1 TAB PO DAILY for 30 Days, #30 TAB 0 Refills 09/21/24 Lisinopril (Lisinopril) 20 Mg Tablet, 1 TAB PO DAILY for 30 Days, #30 TAB 0 Refills 09/21/24 Atorvastatin Calcium (Atorvastatin Calcium) 40 Mg Tablet, 1 TAB PO HS for 30 Days, #30 TAB 0 Refills 09/21/24 Albuterol Sulfate (Albuterol Sulfate) 5 Mg/Ml Solution, 7 MG IH Q6HPRN, ML 08/22/24 Sertraline HCl (Sertraline HCl) 100 Mg Tablet, 1 TAB PO DAILY for 30 Days, #30 TAB 0 Refills 08/22/24 Benzonatate (Benzonatate) 100 Mg Capsule, 100 MG PO TID, CAP 08/22/24 Bupropion HCl (Bupropion HCl Sr) 150 Mg Tablet.er, 1 TAB PO BID for 30 Days, #60 TAB 0 Refills 08/22/24 Diclofenac Sodium (Diclofenac Sodium) 75 Mg Tablet.dr, 1 MG PO BID 08/22/24 Gabapentin (Gabapentin) 100 Mg Capsule, 300 MG PO BID, CAP 08/22/24 Montelukast Sodium (Montelukast Sodium) 10 Mg Tablet, 1 TAB PO DAILY for 30 Days, #30 TAB 0 Refills 08/22/24 Discontinued Reported Medications Metoprolol Tartrate (Metoprolol Tartrate) 50 Mg Tablet, 1 TAB PO BID for 30 Days, #60 TAB 0 Refills 09/21/24 Isosorbide Mononitrate (Isosorbide Mononitrate ER) 30 Mg Tab.er.24h, 1 TAB PO DAILY for 30 Days, #30 TAB 0 Refills 09/21/24 Hydrocortisone (Hydrocortisone 2.5% Oint) 2.5 % Oint, 1 APPL TP BID for 5 Days, #30 GM 0 Refills APPLY TO LEFT HAND NEAR LEFT PINKY, apply to affected area(s) 08/22/24 Lisinopril (Lisinopril) 40 Mg Tablet, 1 TAB PO DAILY for 30 Days, #30 TAB 0 Refills 08/22/24 Time spent arranging discharge: 31-60 minutes MARYBEL BURR Sep 24, 2024 08:33
[2024-09-24] MEDS ORDERED: METO-391 PO (08:37)
[2024-09-24 09:00] VITALS: O2SAT 99
--- NOTE | 2024-09-24 09:40 | NUR ---
DR. CASTILLO AWARE OF CONSULT.
--- NOTE | 2024-09-24 11:05 | NUR ---
DC NOTE DC INSTRUCTIONS AND FOLLOW UP APPOINTMENT GIVEN ALONG WITH [employer] CARD AND E-SCRIPT SENT TO PT'S LOCAL PHARMACY, VERBALIZED UNDERSTANDING. PIV AND TELE MONITOR REMOVED, CATHETER INTACT, DENIES NAY PAIN OR DISCOMFORT, EAGER TO BE DC TO GO HOME NAD SEE HIS GRANDCHILDREN. PT IS WHEELED DOWNSTAIRS INTO VIA PRIVATE CAR. NO FURTHER COMMENTS OR CONCERNS AT THIS TIME.
[2024-09-27 16:11] LABS: ALBUMIN (IFE & ELECTROPHOR) 3.2 g/dL (2.9-4.4); ALBUMIN/GLOBULIN RATIO (IFE) 1.2 (0.7-1.7); ALPHA-1 (IFE & PEP) 0.3 g/dL (0.0-0.4); ALPHA-2 (IFE & PEP) 0.8 g/dL (0.4-1.0); BETA (IFE & ELP) 1.1 g/dL (0.7-1.3); GAMMA GLOBULINS (IFE & ELP) 0.6 g/dL (0.4-1.8); GLOBULIN TOTAL (IFE) 2.9 g/dL (2.2-3.9); IGA (IFE) 204 mg/dL (90-386); IGG (IMMUNOFIXATION) 768 mg/dL (603-1613); IGM (IMMUNOFIXATION) 37 mg/dL (20-172); M-SPIKE (IEP) Not Observed g/dL (Not Observed); TOTAL PROTEIN 6.1 g/dL (6.0-8.5)
[2024-09-29 08:01] LABS: LEAD WHOLE BLOOD <1.0 ug/dL (0.0-3.4)
== END 2024-09-24 11:05 | disposition home or self-care (01) | DRG 322 ==
LOC: EDH 15:21 → EDHIP 17:58 → 3BH 09-22 20:17
PROVIDERS: ADMIT Internal Medicine; ATTEND Internal Medicine
PROC: 027034Z Dilation of Coronary Artery, One Artery with Drug-eluting Intraluminal Device, Percutaneous Approach (ICD-10-PCS; principal; 2024-09-23)
DX: I25.110 Atherosclerotic heart disease of native coronary artery with unstable angina pectoris (principal); Z68.42 Body mass index [BMI] 45.0-49.9, adult; R20.2 Paresthesia of skin; E78.00 Pure hypercholesterolemia, unspecified; J44.9 Chronic obstructive pulmonary disease, unspecified; E11.9 Type 2 diabetes mellitus without complications; E66.01 Morbid (severe) obesity due to excess calories; F41.9 Anxiety disorder, unspecified; M54.30 Sciatica, unspecified side; F32.A Depression, unspecified; Z95.5 Presence of coronary angioplasty implant and graft; Z87.891 Personal history of nicotine dependence; Z79.82 Long term (current) use of aspirin; I25.2 Old myocardial infarction; Z79.899 Other long term (current) drug therapy; Z79.02 Long term (current) use of antithrombotics/antiplatelets; Z63.4 Disappearance and death of family member; Z79.52 Long term (current) use of systemic steroids
CPT/HCPCS: 36415; 70450; 70551; 71045; 74176; 80048; 81003; 82375; 82607; 83036; 83690; 84145; 84425; 84443; 84484; 85025; 85610; 85730; 86140; 86334; 86592; 87426; 92972; 93005; 94640; 94664; 96374; 96375; 99156; 99157; 99285; C1760; C1761; C1769; C1887; C1894; C9600; G0378; J0583; J1644; J2250; J2270; J2470; J2919; J3010; J3490; Q9967; C1874; Q9965

== ENCOUNTER → 2024-10-15 | Outpatient (CLI) | payer OTHER ==
[~2024-10-15] MED LIST changes: +ASPI-1005 PO; +ATOR40TA71 PO; +CLOP75TA32 PO; -HC2530O TP; +LISI20TA24 PO; -LISI40TA9 PO; +METO-391 PO
[2024-10-15 12:46] LABS: ALBUMIN 3.6 g/dL (3.5-5.0); BILIRUBIN,DIRECT 0.1 mg/dL (0.0-0.3); BILIRUBIN,TOTAL 0.4 mg/dL (0.2-1.0); TOTAL PROTEIN, SERUM 7.3 g/dL (6.0-8.3)
== END | disposition home or self-care (01) ==
LOC: LAB 08:02
PROVIDERS: ATTEND Internal Medicine Cardiovascular Disease
DX: I25.118 Atherosclerotic heart disease of native coronary artery with other forms of angina pectoris (principal); E78.5 Hyperlipidemia, unspecified
CPT/HCPCS: 36415; 80061; 80076

== ENCOUNTER → 2024-12-22 | Outpatient (CLI) | payer OTHER | END | disposition home or self-care (01) | LOC: RESP 13:49 | PROVIDERS: ATTEND Internal Medicine Cardiovascular Disease | DX: J44.9 Chronic obstructive pulmonary disease, unspecified (principal); R06.09 Other forms of dyspnea; R05.8 Other specified cough; R53.83 Other fatigue | CPT/HCPCS: 94060 ==